=== PATIENT | male | born 1955 | race Caucasian/White ===

== ENCOUNTER 2017-11-03 09:23 | Inpatient (IN) | payer OTHER ==
[~2017-11-03] VITALS: Ht 182.9 cm; Wt 103.0 kg
[2017-11-03 10:17] LABS: ABSOLUTE BASOPHIL COUNT 0 /CUMM (0.0-0.2); ABSOLUTE EOSINOPHIL COUNT 0.2 /CUMM (0.0-0.7); ABSOLUTE GRANULOCYTE CT 4.5 /CUMM (1.4-6.5); ABSOLUTE LYMPH COUNT 2.9 /CUMM (1.2-3.4); ABSOLUTE MONOCYTE COUNT 0.7 /CUMM (0.10-0.60); BASOPHIL % 0.3 % (0.0-2.0); EOSINOPHIL % 2.8 % (0-5); GRANULOCYTE % 53.8 % (42.2-75.2); HEMATOCRIT 41.7 % (42-52); MEAN CORPUSCULAR HGB 30.9 PG (27.0-31.0); MEAN CORPUSCULAR HGB CONC 34.3 G/DL (33.0-37.0); MEAN CORPUSCULAR VOLUME 90.2 FL (80.0-94.0); MEAN PLATELET VOLUME 8.2 FL (7.4-10.4); PLATELET COUNT 206 /CUMM (130-400); RBC DISTRIBUTION WIDTH 13.2 % (11.5-14.5); RED BLOOD CELL CT 4.62 /CUMM (4.70-6.10); WHITE BLOOD CELL COUNT 8.3 /CUMM (4.8-10.8)
[2017-11-03] MEDS ORDERED: LISINOPRIL20 M1 PO (11:20)
[2017-11-03] MEDS ORDERED: AMOX-CLAV 875-1 EACH PO (11:21)
[2017-11-03] MEDS ORDERED: ATORVASTATIN CA40 M1 PO (11:21)
[2017-11-03] MEDS ORDERED: ALLOPURINOL300 M1 PO (11:21)
[2017-11-03] MEDS ORDERED: METFORMIN HCL1000 M1 PO (11:21)
[2017-11-03] MEDS ORDERED: OMEPRAZOLE40 M1 PO (11:22)
[2017-11-03] MEDS ORDERED: PREDNISONE5 M1 PO (11:22)
--- NOTE | 2017-11-03 11:36 | ED AMS/SEIZURE/WEAK/DIZZY ---
See Addendum History of Present Illness General Chief Complaint: General Adult Stated Complaint: C/O WEAKNESS ALL OVER Source: patient, family Exam Limitations: no limitations Vital Signs & Intake/Output Vital Signs & Intake/Output Vital Signs Date Time Temp Pulse Resp B/P B/P Pulse O2 O2 Flow FiO2 Mean Ox Delivery Rate 11/05 1054 88 143/84 11/05 1053 97 143/84 11/05 0902 97 Room Air Room Air 11/05 0800 98.5 96 12 142/80 11/05 0800 96 Room Air Room Air 11/05 0800 98.5 96 12 142/80 96 Room Air Room Air 11/05 0600 88 18 133/71 11/05 0400 97.2 89 11 122/77 11/05 0400 92 Room Air Room Air 11/05 0200 89 16 137/77 11/05 0000 97.2 90 15 142/80 11/04 2300 97.2 95 12 142/80 96 Room Air Room Air 11/04 2200 98.2 86 12 138/70 11/04 2000 98.1 83 12 110/70 11/04 2000 98 Room Air Room Air 11/04 1958 96 Room Air Room Air 11/04 1800 97.1 84 28 116/65 11/04 1600 97.1 96 22 98/70 11/04 1600 97.1 102 20 98/70 96 Room Air Room Air 11/04 1600 96 Room Air Room Air 11/04 1400 97.6 94 18 108/54 11/04 1200 97.9 104 24 134/74 11/04 1200 98 Room Air Room Air ED Intake and Output 11/05 0000 11/04 1200 Intake Total 2060 660 Output Total 1600 2049 Balance 460 -1390 Intake, IV 960 560 Intake, Oral 1100 100 Number 0 0 Bowel Movements Output, Urine 1600 2049 Patient 234 lb 236 lb Weight Weight Bed scale Bed scale Measurement Method Allergies Coded Allergies: Penicillins (TOLD CHILD 11/03/17) Reconcile Medications Allopurinol 300 MG TABLET 1 TAB PO DAILY GOUT (Reported) Amoxicillin/Clavulanate Potass (Amox-Clav 875-125 MG Tablet) 875 MG-125 MG TABLET 1 TAB PO BID SINUS INFECTION (Reported) Atorvastatin Calcium 40 MG TABLET 1 TAB PO DAILY HIGH CHOLESTEROL (Reported) Lisinopril 20 MG TABLET 1 TAB PO DAILY HTN (Reported) Metformin HCl 1,000 MG TABLET 1 TAB PO BID DIABETES (Reported) Omeprazole 40 MG CAPSULE.DR 1 CAP PO DAILY PRN ACID REFLUS (Reported) Prednisone 5 MG TABLET 1 TAB PO DAILY SINUS INFECTION (Reported) Triage Note: PT STATES HE WAS AT HIS PCP MONDAY AND DX WITH A SINUS INFECTION AND PLACED ON PREDNISONE AND AUGMENTIN. REPORTS HE HAS TAKEN THE MEDICINES OVER THE PAST 3 DAYS AND AFTER HIS PREDNISONE DOSE YESTERDAY HE STARTED TO FEEL WEAKNESS IN HIS HANDS. STOPPED TAKING THE PREDNISONE, BUT STATES THAT HIS SYMPTOMS GOT WORSE AND HAD TROUBLE STANDING UP THIS AM. FEELS LIKE HE HAS NO STRENGTH IN HIS EXTREMITIES. PT HAS NO STRENGTH IN HANDS, UNABLE TO SQUEEZE RN FINGERS. PT NOTED WITH A SLIGHT DROOP TO THE RIGHT SIDE, BUT STATES THAT HE HAS A HX OF A BRAIN TUMOR AND HAS RESIDUAL SYMPTOMS FROM THAT. SPOUSE STATES THAT X1 WEEK AGO HE WAS TRYING TO OPEN UP A GARAGE DOOR AND FELL BACKWARDS ONTO HIS BACK. DENIES ANY HEAD STRIKE DURING THAT TIME. Triage Nurses Notes Reviewed? yes HPI: Patient presents for evaluation of gradual onset of weakness and swelling of the extremities. Patient states that he went to his primary care physician on Monday and began treatment for sinus infection after he tested negative for the flu. He is prescribed prednisone and Augmentin. He states he began having swelling of his extremities and beginning yesterday weakness of his hands. This morning he states his legs felt rubbery and weak and he had great difficulty in ambulation. He denies loss of sensation. 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 He has had a persistent cough over the past 3 weeks. (Radha CAMARENA,Benson King) Past History Travel History Traveled to [place] past 21 day No Medical History Any Pertinent Medical History? see below for history Cardiovascular: hypertension Endocrine: diabetes Surgical History Surgical History: non-contributory Psychosocial History What is your primary language Burundian Tobacco Use: Never used ETOH Use: occasional use Illicit Drug Use: denies illicit drug use Family History Hx Contributory? No (Benson Garcia MD) Review of Systems Review of Systems Constitutional: Reports: no symptoms. EENTM: Reports: no symptoms. Respiratory: Reports: no symptoms. Cardiovascular: Reports: no symptoms. GI: Reports: no symptoms. Genitourinary: Reports: no symptoms. Musculoskeletal: Reports: see HPI. Skin: Reports: see HPI. Neurological/Psychological: Reports: no symptoms. Hematologic/Endocrine: Reports: no symptoms. Immunologic/Allergic: Reports: no symptoms. All Other Systems: Reviewed and Negative (Radha CAMARENA,Benson King) Physical Exam Physical Exam General Appearance: SEE BELOW Comments: Gen.: Well-nourished, well-developed, no acute respiratory distress. Head: Normocephalic, atraumatic. Eyes: Normal inspection bilaterally Ears: Normal inspection bilaterally Nose: Normal inspection Throat/mouth : Moist mucosa Face: Mild right mouth droop Neck: Supple, full range of motion, no goiter, no JVD Heart: Regular rate and rhythm, no murmurs rubs or gallops Lungs: Clear to auscultation bilaterally with normal air entry Chest: Nontender Back: Normal range of motion Abdomen: Soft, nontender, nondistended, normal bowel sounds Extremities: Normal range of motion grossly, equal radial pulses, no cyanosis, slight pretibial pitting edema of the legs, 3 out of 5 hand grasp bilaterally, 4 out of 5 lower extremity strength, sensation intact to all extremities Neurologic: Cranial nerves grossly intact, speech is clear Skin: warm and dry Psychiatric: Calm, cooperative, no apparent delusions or hallucinations Core Measures ACS in differential dx? No CVA/TIA Diagnosis No Sepsis Present: No Sepsis Focused Exam Completed? No (Radha CAMARENA,Benson King) Progress Differential Diagnosis: PREDNISONE MYOPATHY, gUILLIAN BARRE,DIABETIC NEUROPATHY, cva, tia, STATIN-INDUCED MYOPATHY Plan of Care: Orders Procedure Date/time Status ICU LAB BUNDLE 11/05 0500 Complete CBC WITHOUT DIFFERENTIAL 11/05 0500 Complete THERAPIST ORDERS 11/04 UNK Complete ELECTROMYOGRAPHY-NER.COND(GEN) 11/04 UNK Active Current Medications Sig/Nilda Start time Last Medication Dose Stop Time Status Admin Amlodipine Besylate 5 MG DAILY 11/06 1000 AC 11/05 (Norvasc) 1054 Magnesium Sulfate 1 GM ONCE ONE 11/05 0945 AC 11/05 (Mag Sulfate in D5) 11/05 1344 1051 Dextrose/Water 100 ML (D5W) Atorvastatin Calcium 40 MG 1700 11/04 1700 AC 11/04 (Lipitor) 1729 Insulin Aspart 0 TIDAC 11/04 1200 AC (NovoLOG) Lisinopril 40 MG DAILY 11/04 1000 AC 11/05 (Prinivil) 1053 Thiamine HCl 100 MG DAILY 11/04 1000 AC 11/05 (Vitamin B1) 1051 Immune Globulin 42 GM DAILY@1800 11/03 1800 AC 11/04 (Carimune NF) 1838 Water 700 ML (Sterile Water) Enoxaparin Sodium 40 MG DAILY 11/03 1407 AC 11/05 (Lovenox) 1053 Omeprazole 40 MG DAILY AC 11/03 1340 AC 11/05 (Prilosec) 0653 Laboratory Tests 11/05/17 0652: Anion Gap 10, Estimated GFR > 60, Glucose 135 H, Calcium 9.3, Phosphorus 4.6 H , Magnesium 1.5 L, Total Bilirubin 0.4, AST 38, ALT 52, Albumin 3.8, CBC w Diff NO MAN DIFF REQ, RBC 4.52 L, MCV 90.9, MCH 30.8, MCHC 33.9, RDW 13.8, MPV 8.1, Gran % 61.2, Lymphocytes % 24.2, Monocytes % 10.6 H, Eosinophils % 3.5, Basophils % 0.5, Absolute Granulocytes 3.7, Absolute Lymphocytes 1.5, Absolute Monocytes 0.6, Absolute Eosinophils 0.2, Absolute Basophils 0 11:[address] Torres to evaluate the patient in the ED. PATIENT EVALUATED BY DR TORRES. HIGHLY SUSPECTED GBS. LUMBAR PUNCTURE, MRI ORDERED. IVIG TO BE STARTED. D/W DR VILLATORO - WILL TRANSPORT TO ICU FOR CLOSE MONITORING. NO RESPIRATORY COMPROMISE AT THIS TIME. (Josh CAMARENA,Amber) Initial ED EKG: none Comments: 11/03/2017 11:35:06 AM patient signed out to Dr. Moreno at shift change person. (Radha CAMARENA,Benson King) Diagnostic Imaging: Viewed by Me: MRI. Discussed w/RAD: MRI. Initial ED EKG: NSR Comments: PATIENT: JOHNNY PRITCHETT PRESENT AGE: 62 PATIENT ACCOUNT NO: [id number] : 55 LOCATION: [facility] ORDERING PHYSICIAN: Amber Moreno MD SERVICE DATE: 11/03/176200 EXAM TYPE: MRI - MRI-HEAD W & W/O RADHA EXAMINATION: MR BRAIN WITHOUT AND WITH CONTRAST CLINICAL INFORMATION: Question mass. Diffuse weakness. Status post acoustic neuroma resection 1990. COMPARISON: None. TECHNIQUE: Multiplanar, multisequence imaging of the brain was performed before and after the intravenous administration of 10 mL of Gadavist. FINDINGS: There are postoperative changes related to translabyrinthine approach for resection of a right-sided acoustic neuroma. There is no evidence of recurrent tumor. There is a fat graft in place. There is no mass or abnormal enhancement within the left internal auditory canal. There is no mass or abnormal signal within the cerebellopontine angle cisterns. The left mastoid air cells are clear. There is no intracranial mass or abnormal intracranial enhancement. There is no acute infarction. There is no intracranial hemorrhage or extra axial collection. The ventricles, sulci, and basilar cisterns are normal in size and configuration. There are mild foci of T2 hyperintensity in the bilateral cerebral white matter, which are nonspecific but likely reflect underlying small vessel disease. The flow voids of the major intracranial arteries appear intact. The bones and extracranial soft tissues are within normal limits. IMPRESSION: 1. Expected postoperative changes related to resection of right vestibular schwannoma. No evidence of recurrence. 2. No mass lesion, acute infarction, or abnormal intracranial enhancement. DICTATED BY: Carmelita Hudson MD DATE/TIME DICTATED:11/03/171707 ASBESTOS ABATEMENT TECHNICIAN:SOLIS DATE/TIME TRANSCRIBED:11/03/171707 CONFIDENTIAL, DO NOT COPY WITHOUT APPROPRIATE AUTHORIZATION. <Electronically signed in Other Vendor System> SIGNED BY: Carmelita Hudson MD 11/03/171716 PATIENT: JOHNNY PRITCHETT PRESENT AGE: 62 PATIENT ACCOUNT NO: [id number] : 55 LOCATION: [facility] ORDERING PHYSICIAN: Amber Moreno MD SERVICE DATE: 11/03/17 EXAM TYPE: MRI - MRI-CERVICAL SPINE EXAMINATION: MR CERVICAL SPINE WITHOUT CONTRAST CLINICAL INFORMATION: Question cervical injury. Weakness in all 4 limbs. History of fall few months ago. COMPARISON: None available. TECHNIQUE: MRI of the cervical spine was performed using routine sequences without contrast. The axial T2-weighted images are markedly motion degraded. FINDINGS: There is straightening of the normal cervical lordosis but no listhesis in the sagittal plane. There is multilevel degenerative disc change with intervertebral disc height loss from C3-C4 through C7-T1. There is endplate and bone marrow edema at C3-C4, C5-C6, and C7-T1. The cervical cord signal appears normal. The visualized intracranial structures and paraspinal soft tissues are within normal limits. The carotid arteries are partly retropharyngeal. SIGNIFICANT FINDINGS BY LEVEL: C2-C3: Disc bulging and uncovertebral hypertrophy without spinal canal or neural foraminal stenosis. C3-C4: Disc osteophyte complex results in mild spinal canal stenosis. Mild bilateral uncovertebral and facet arthropathy resulting in mild to moderate right and mild left neural foraminal stenosis. C4-C5: Broad-based disc osteophyte complex indents the ventral cord causing mild spinal canal stenosis. Bilateral uncovertebral hypertrophy and facet arthropathy results in moderate to severe left and moderate right neural foraminal stenosis. C5-C6: Broad-based disc osteophyte complex indents the ventral cord causing mild spinal canal stenosis. Moderate right and moderate to severe left neural foraminal stenosis related to uncovertebral and facet arthropathy. C6-C7: Broad-based disc osteophyte complex indents the ventral cord causing mild spinal canal stenosis. There is approximately moderate bilateral neural foraminal stenosis related to uncovertebral and facet arthropathy. C7-T1: Broad-based disc osteophyte complex with superimposed central disc protrusion which indents the ventral cord causing mild spinal canal stenosis. There is mild left more than right neural foraminal stenosis. There is no high-grade spinal canal stenosis in the visualized upper thoracic spine. IMPRESSION: Moderate multilevel degenerative spondylotic changes resulting in multilevel mild spinal canal stenosis. There is neural foraminal stenosis which is most advanced at C4-C5 and C5-C6. No cord signal abnormality is seen. DICTATED BY: Carmelita Hudson MD DATE/TIME DICTATED:11/03/171712 ASBESTOS ABATEMENT TECHNICIAN:SOLIS DATE/TIME TRANSCRIBED:11/03/171712 CONFIDENTIAL, DO NOT COPY WITHOUT APPROPRIATE AUTHORIZATION. <Electronically signed in Other Vendor System> SIGNED BY: Carmelita Hudson MD 11/03/17 172 (Amber Moreno MD) Departure Departure Disposition: STILL A PATIENT Condition: Stable Referrals: Myra CAMARENA,Bernardino García (PCP/Family) Departure Forms: Customer Survey General Discharge Information (Radha CAMARENA,Benson King) Departure Time of Disposition: 1315 Clinical Impression Primary Impression: Guillain-Lindon syndrome Admission Note Spoke With: Ej CAMARENA,Eladio Swanson Documentation of Exam: Documentation of any treatments & extenuating circumstances including Concerns Regarding Discharge (functional status, medication knowledge or non-compliance, living conditions, etc.) that warrant an admission rather than observation: [ICU ADMISSION, MRI NECK, LUMBAR PUNCTURE, NEUROLOGY CONS[facility] DR [facility]RES[facility] (Josh CAMARENA,Amber) Critical Care Note Critical Care Note Critical Care Time: 30-74 min (Josh CAMARENA,Amber)
[2017-11-03 13:32] LABS: PT 11.3 SEC (9.4-12.5); PTT 27 SEC (25-37)
--- NOTE | 2017-11-03 13:42 | Cons- Neurology ---
General Information and HPI Consulting Request Date of Consult: 11/03/17 Requested By: Dr. Garcia History of Present Illness: 62-year-old male presents with chief complaint of weakness. He is a known diabetic, hypertensive, hyperlipidemic patient was recently seen by his PMD for presumed sinus infection with purulent discharge from the nose. He was started 4 days ago on an antibiotic and steroid. His also recalls that he may have had some transient GI disturbance which was self-limited within the past month and a flu shot approximately one month ago. Yesterday, the patient began to note weakness of his hands. Last night, upon attempting to get out of bed, he needed assistance from his . He subsequently presented to the [facility] for further evaluation and treatment. Finally, the patient will admit to a fall approximately 1 month ago upon attempting to close his garage door. He fell backwards onto some grass. He went on his way without apparent difficulty or severe discomfort. There has been no sphincteric changes or visual disturbance. 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 Allergies/Medications Allergies: Coded Allergies: Penicillins (TOLD CHILD 11/03/17) Home Med List: Allopurinol 300 MG TABLET 1 TAB PO DAILY GOUT (Reported) Amoxicillin/Clavulanate Potass (Amox-Clav 875-125 MG Tablet) 875 MG-125 MG TABLET 1 TAB PO BID SINUS INFECTION (Reported) Atorvastatin Calcium 40 MG TABLET 1 TAB PO DAILY HIGH CHOLESTEROL (Reported) Lisinopril 20 MG TABLET 1 TAB PO DAILY HTN (Reported) Metformin HCl 1,000 MG TABLET 1 TAB PO BID DIABETES (Reported) Omeprazole 40 MG CAPSULE.DR 1 CAP PO DAILY PRN ACID REFLUS (Reported) Prednisone 5 MG TABLET 1 TAB PO DAILY SINUS INFECTION (Reported) Review of Systems Review of Systems: Notable for recent head congestion and purulent discharge and more recent weakness of hands and legs. There has been no diplopia, fever, rash, chest pain , shortness of breath, vertigo, vomiting, joint inflammation or bleeding disturbance. He endorses chronically impaired hearing and facial weakness on the right. Past History Travel History Traveled to [place] past 21 day No Medical History Cardiovascular: hypertension Endocrine: diabetes Surgical History Surgical History: non-contributory Psychosocial History ETOH Use: occasional use Illicit Drug Use: denies illicit drug use Exam & Diagnostic Data Vital Signs and I&O Vital Signs Date Time Temp Pulse Resp B/P B/P Pulse O2 O2 Flow FiO2 Mean Ox Delivery Rate 11/03 1303 98.1 95 18 168/103 99 Room Air 11/03 1118 87 18 179/93 99 Room Air 11/03 0943 96.7 87 16 178/99 97 Room Air Pleasant middle-aged male in no acute distress. He was awake, alert and cooperative. Higher cortical function was intact. Speech was fluent. The head was normocephalic and atraumatic. Pupils were equal. Extraocular movements were full. There was a chronic right lower motor neuron facial paresis with synkinesis. Hearing was absent on the right. Tongue was midline; there was no dysarthria. The motor examination showed normal tone. He was diffusely weak, both proximally and distally in the upper and lower extremities. Biceps reflexes were trace positive. Patella and Achilles reflexes were 2+. Plantar responses were flexor. Sensory examination showed normal joint position sense and essentially normal distal vibratory sensation. There was no sensory level. The gait was untested. 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 It would be most unusual for 4 days of an oral steroid to result in this degree of weakness both proximally and distally. Similarly, a statin-induced myopathy would not present in this fashion. A cervical myelopathy cannot be definitively ruled out, especially in view of his preserved deep tendon reflexes, however I feel that this is also quite unlikely. Recommendations: We would suggest the following: #1 admit to ICU #2 baseline PFTs with vital capacity #3 DVT precautions #4 lumbar puncture to assess for albumino- cytologic dissociation #5 intravenous immunoglobulin 2 g/kg over 5 days #6 physical and occupational therapy evaluations #7 MRI of the cervical spine without contrast #8 discontinue outpatient corticosteroids #9 we'll consider EMG and nerve conduction study next week if diagnosis remains at all in question We will follow closely with the ICU team. Please feel free to call with any further questions. Consult Acknowledgment - Thank you for your consult request.
--- NOTE | 2017-11-03 14:25 | RADIOLOGY REPORT ---
EXAMINATION: XR PORTABLE CHEST CLINICAL INFORMATION: Question Guillain [place] syndrome. ICU admission. Baseline exam. COMPARISON: None TECHNIQUE: Portable AP semierect view of the chest was obtained. FINDINGS: EKG leads overlie the chest. The cardiomediastinal silhouette is within normal limits in size. Lungs bilaterally are symmetrically expanded and clear. No focal consolidation, effusion or pneumothorax is seen. There is likely mild convex right thoracic scoliosis. Bony structures are otherwise unremarkable. IMPRESSION: No acute cardiopulmonary process seen.
--- NOTE | 2017-11-03 14:33 | Cons- CRCU ---
General Information and HPI Consulting Request Date of Consult: 11/03/17 Requested By: ed History of Present Illness: 62-year-old male presents with chief complaint of weakness. He is a known diabetic, hypertensive, hyperlipidemic patient was recently seen by his PMD for presumed sinus infection with purulent discharge from the nose. He was started 4 days ago on an antibiotic and steroid. His also recalls that he may have had some transient GI disturbance which was self-limited within the past month and a flu shot approximately one month ago. Yesterday, the patient began to note weakness of his hands. Last night, upon attempting to get out of bed, he needed assistance from his . He subsequently presented to the [facility] for further evaluation and treatment. Finally, the patient will admit to a fall approximately 1 month ago upon attempting to close his garage door. He fell backwards onto some grass. He went on his way without apparent difficulty or severe discomfort. There has been no sphincteric changes or visual disturbance. 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 Review of symptoms Notable for recent head congestion and purulent discharge and more recent weakness of hands and legs. There has been no diplopia, fever, rash, chest pain , shortness of breath, vertigo, vomiting, dysphagia, joint inflammation or bleeding disturbance. He endorses chronically impaired hearing and facial weakness on the right. Allergies/Medications Allergies: Coded Allergies: Penicillins (TOLD CHILD 11/03/17) Home Med List: Allopurinol 300 MG TABLET 1 TAB PO DAILY GOUT (Reported) Amoxicillin/Clavulanate Potass (Amox-Clav 875-125 MG Tablet) 875 MG-125 MG TABLET 1 TAB PO BID SINUS INFECTION (Reported) Atorvastatin Calcium 40 MG TABLET 1 TAB PO DAILY HIGH CHOLESTEROL (Reported) Lisinopril 20 MG TABLET 1 TAB PO DAILY HTN (Reported) Metformin HCl 1,000 MG TABLET 1 TAB PO BID DIABETES (Reported) Omeprazole 40 MG CAPSULE.DR 1 CAP PO DAILY PRN ACID REFLUS (Reported) Prednisone 5 MG TABLET 1 TAB PO DAILY SINUS INFECTION (Reported) Review of Systems Review of Systems Constitutional: Reports: see HPI. Past History Travel History Traveled to [place] past 21 day No Medical History Cardiovascular: hypertension Endocrine: diabetes Surgical History Surgical History: non-contributory Psychosocial History ETOH Use: occasional use Illicit Drug Use: denies illicit drug use Exam & Diagnostic Data Last 24 Hrs of Vital Signs/I&O Vital Signs Date Time Temp Pulse Resp B/P B/P Pulse O2 O2 Flow FiO2 Mean Ox Delivery Rate 11/03 1303 98.1 95 18 168/103 99 Room Air 11/03 1118 87 18 179/93 99 Room Air 11/03 0943 96.7 87 16 178/99 97 Room Air Intake & Output 11/03 1600 11/03 0800 11/03 0000 Intake Total Output Total Balance Patient 237 lb Weight Weight Standing Scale Measurement Method Last 48 Hrs of Labs/[place]: Laboratory Tests 11/03/17 1008: Anion Gap 14, Estimated GFR > 60, BUN/Creatinine Ratio 22.9, Glucose 122 H, Calcium 9.9, Total Bilirubin 0.4, AST 46, ALT 64, Alkaline Phosphatase 46, Creatine Kinase 172 H, Troponin I < 0.01, Total Protein 7.2, Albumin 4.3, Globulin 2.9, Albumin/Globulin Ratio 1.5, PT 11.3, INR 1.04, APTT 27, CBC w Diff NO MAN DIFF REQ, RBC 4.62 L, MCV 90.2, MCH 30.9, MCHC 34.3, RDW 13.2, MPV 8.2, Gran % 53.8, Lymphocytes % 34.6, Monocytes % 8.5, Eosinophils % 2.8, Basophils % 0.3, Absolute Granulocytes 4.5, Absolute Lymphocytes 2.9, Absolute Monocytes 0.7 H, Absolute Eosinophils 0.2, Absolute Basophils 0 11/03/17 1007: Ref Lab Test Result Pending Assessment/Plan CRCU Impression/Plan: On exam Alert awake and oriented 3 not in any distress Neck supple no JVD Chest decreased breath sounds no wheezing Heart S1-S2 was heard no murmur Abdominal exam soft No cyanosis clubbing or edema Neurological exam she showed that he is alert awake and oriented 3, higher cortical function normal, speech normal. PERRLA EOMI Right-sided facial droop with chronic right-sided motor neuron facial versus with synkinesis noted Hearing absent on the right side He had diffuse bilateral weakness both sides and on 4 limbs both proximally and distally His tendon reflexes were reduced, both sides especially in the upper extremity. Plantars were downgoing, sensory exam normal he did complain of numbness both sides Gait was not tested Patient did not give any this sphincter per symptoms SIGNIFICANT DATA Blood work reviewed which appears essentially normal CPK slightly elevated IMPRESSION This is a gentleman with hypertension, hyperlipidemia, diabetes, previous history of gout, previous surgery for right-sided acoustic neuroma with some right-sided lower motor neuron perisis with synkinesis, recent sinus infection for which he took antibiotics and steroids, history of daily alcohol use, history of fall more than a month ago where he fell backwards with no significant neck pain and other discomfort, no previous history of any animal bites etc. 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 Differential diagnoses include cervical myelopathy (previous fall) however clinically does not appear so. No clinical evidence suggestive of significant steroid myopathy or myopathy from statins. No clinical evidence suggestive of any active neurological infection. Patient does give a history of diarrheal illness about a month ago, recent sinusitis. * Recent sinusitis for which she has taken steroids and antibiotics and seems to be better * Hypertension, hyperlipidemia, diabetes, previous history of gout which appears to be stable * Previous history of surgery for acoustic neuroma with chronic right-sided lower motor neuron paresis of the facial nerve with synkinesis * Daily alcohol use but no review of systems suggestive any alcohol withdrawal syndrome. 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 RECOMMENDATION/PLAN * Admit to ICU * MRI of the head and neck * Lumbar puncture and send for all appropriate studies * If the MRI is unremarkable start him on immunoglobulin 2 g per KG over 5 days * Adequate blood pressure control including amlodipine and lisinopril use avoid beta uvaldo * Ask respiratory to do baseline vital capacity and his vital capacity should be checked every 6-8 hours depending on his clinical course. If he cannot do this test appropriately as he has facial no paralysis then we will watch him clinically and he might need ABG if he does show evidence of hypercarbia * Proton pump inhibitor, DVT prophylaxis * Watch for any autonomic dysfunction * Given one litre banana bag and start him on thiamine * Check HIV antibody, ESR, CRP * Chest x-ray * Fingerstick glucose hold metformin and use sliding scale insulin if needed * Hold statin * Recheck his CPK tomorrow * No further steroids * Finish 7 day course of antibiotics with Augmentin by mouth * Watch out for any dysphagia Patient is critically ill keep him in the ICU Consult Acknowledgment - Thank you for your consult request.
--- NOTE | 2017-11-03 15:59 | History & Physical ---
General Information and HPI MD Statement: I have seen and personally examined JOHNNY PRITCHETT and documented this H&P. The patient is a 62 year old M who presented with a patient stated chief complaint of [weakness]. Source of Information: patient, family Exam Limitations: no limitations History of Present Illness: This is a 62 yo male with PMH of DM, HTN, R.sided acoustic neuroma s/p surgery 27 yrs ago with residual facial paralysis and hearing loss, seasonal allergies who comes in for CC weakness. He states that he has largely been the normal health until yesterday. In the afternoon he noted some bilateral upper extremity weakness. He found it unusual that he could not stir pots on the stove without fatigue. He felt like he could not grasp objects as well. He continued the rest of the day and went to sleep without noticing anything further. He then work up at 4am and noted weakness in his LE that he needed his 's assistance to ambulate to bathroom. He has never had similar sensation before. He does endorse some trauma about a month ago when he slipped and fell and hit the back of his neck. He noted no sequelae immediately after fall. He did complain of chronic sinus infection for about one month. He recently saw PCP and was started on Augmentin and Prednisone 5mg TID. He has completed 3 days of treatment. He endorses diarrhea about 1 month ago which lasted for one day. He is up to date on all his vaccinations including influenza (1 mo ago) and tetanus booster within the past five years. Until yesterday pt states that he was able to shovel snow with no problems or weakness. ROS: Denies fever, change in vision, decrease in hearing other than baseline, slurring of speech. Denies chest pain, palpitaitons, abdominal pain, nausea, vomiting, diarrhea, constipation, melena, hematochezia. He does endorse sinus congestion nad weakness in bilat UE and LE. Denies any change in sensation. 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 No recent travel in one year. No changes in medication other than augmentin and prednisone mentioned above. Has not stepped on any joy nails etc. He denies any IVDA or hx of IVDA. He denies smoking. He drinks etoh on almost a daily basis. Several drinks a day mix between beer, vodka and wine. He has never had an episode of withdrawl, or DTs. Denies any difficulty in stopping etoh. Surgical Hx pertinent for cosmetic eyelid surgery and acoustic neuroma on r. side Allergies/Medications Allergies: Coded Allergies: Penicillins (TOLD CHILD 11/03/17) Home Med list Allopurinol 300 MG TABLET 1 TAB PO DAILY GOUT (Reported) Amoxicillin/Clavulanate Potass (Amox-Clav 875-125 MG Tablet) 875 MG-125 MG TABLET 1 TAB PO BID SINUS INFECTION (Reported) Atorvastatin Calcium 40 MG TABLET 1 TAB PO DAILY HIGH CHOLESTEROL (Reported) Lisinopril 20 MG TABLET 1 TAB PO DAILY HTN (Reported) Metformin HCl 1,000 MG TABLET 1 TAB PO BID DIABETES (Reported) Omeprazole 40 MG CAPSULE.DR 1 CAP PO DAILY PRN ACID REFLUS (Reported) Prednisone 5 MG TABLET 1 TAB PO DAILY SINUS INFECTION (Reported) Compliance With Home Meds: GOOD Past History Travel History Traveled to [place] past 21 day No Medical History Cardiovascular: hypertension Endocrine: diabetes Surgical History Surgical History: non-contributory Past Family/Social History Psychosocial History ETOH Use: occasional use Illicit Drug Use: denies illicit drug use Review of Systems Review of Systems Constitutional: Reports: see HPI, weakness. Denies: chills, diaphoresis, fever, unexplained weight loss. Exam & Diagnostic Data Last 24 Hrs of Vital Signs/I&O Vital Signs Date Time Temp Pulse Resp B/P B/P Pulse O2 O2 Flow FiO2 Mean Ox Delivery Rate 11/03 1303 98.1 95 18 168/103 99 Room Air 11/03 1118 87 18 179/93 99 Room Air 11/03 0943 96.7 87 16 178/99 97 Room Air Intake & Output 11/03 1600 11/03 0800 11/03 0000 Intake Total Output Total Balance Patient 107.275 kg Weight Weight Standing Scale Measurement Method Physical Exam General Appearance Alert, Oriented X3, Cooperative, No Acute Distress HEENT Atraumatic, PERRLA, EOMI, mucous membranes dry, has r. sided facial paralysis. at baseline, no tongue fasciculatons noted. Neck Supple Cardiovascular Regular Rate, Normal S1, Normal S2, No Murmurs Lungs Normal Air Movement Abdomen Soft, No Tenderness Neurological strength diminished proximally and distall in bilat LE. No babinski. Reflexes brisk in knees. ROM in tact. Sensation normal bilat. Extremities No Cyanosis, No Edema, Normal Pulses, No Tenderness/Swelling, spooning of nails noted in UE. Last 24 Hrs of Labs/[place]: Laboratory Tests 11/03/17 1441: CSF Glucose 74 H, CSF Total Protein 79 H 11/03/17 1441: CSF WBC 1, CSF RBC 0, CSF Comment , Herpes Simplex Source Pending, HSV I DNA PCR Pending, HSV II DNA PCR Pending 11/03/17 1008: Anion Gap 14, Estimated GFR > 60, BUN/Creatinine Ratio 22.9, Glucose 122 H, Calcium 9.9, Total Bilirubin 0.4, AST 46, ALT 64, Alkaline Phosphatase 46, Creatine Kinase 172 H, Troponin I < 0.01, Total Protein 7.2, Albumin 4.3, Globulin 2.9, Albumin/Globulin Ratio 1.5, PT 11.3, INR 1.04, APTT 27, CBC w Diff NO MAN DIFF REQ, RBC 4.62 L, MCV 90.2, MCH 30.9, MCHC 34.3, RDW 13.2, MPV 8.2, Gran % 53.8, Lymphocytes % 34.6, Monocytes % 8.5, Eosinophils % 2.8, Basophils % 0.3, Absolute Granulocytes 4.5, Absolute Lymphocytes 2.9, Absolute Monocytes 0.7 H, Absolute Eosinophils 0.2, Absolute Basophils 0 11/03/17 1007: Ref Lab Test Result Pending Microbiology 11/03 1444 UPPER RESP: Surveillance Culture - COLB 11/03 1444 GI: Surveillance Culture - COLB 11/03 1440 CENT N S: CSF Culture - RECD 11/03 1440 CENT N S: Gram Stain - RECD Assessment/Plan Assessment: ASSESSMENT: This is a 62 yo male with PMH of DM, HTN, gout, R.sided acoustic neuroma s/p surgery 27 yrs ago with residual facial paralysis and hearing loss, seasonal allergies who comes in for CC weakness. Given acute onset of gradually progressive symmetrical tetraparesis without obvious acute insult or injury differential in this patient includes acute or subacute inflammatory demyelinating polyneuropathy, myelopathy, and tick quadraparesis. Additionally, will need to rule out infection, paraneoplastic, medication side-effect or rheumatologic conditions resulting in similar presentation. -- PLAN: 1. Tetraparesis: Pt has a progressive symmetric paralysis in bilat legs and arms w/ no evidence of sensory disturbance, autonomic dysfunction or bulbar involvement. 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 His hx of recen flu shot, current URI, previous GI episode are supportive of a GBS diagnosis. However, he has brisk reflexes which might suggest against.Pt denies any travel or ingestions. Steroids are a new medication for him but weakness to this degree would be unusual. Will hold off medication regardless. CK WNL. * CBC * Utox * MARY ANN * HIV * TSH * ESR * B12 * Folate * HBA1c * LFT * Lyme * LP to rule out infection and to check for albuminocytologic dissociation * MRI neck * EMG * PT * OT * IVIG 2g/kg over 5 days * PFT * Flu swab * ICU monitoring for arrhythmia,dysphagia, respiratory distress or autonomic dysfunction * Monitor respiratory status closely and low threshold to intubate * Hold prednisone * Hold home Atorvastatin * Hold Allopurinol * Finish dose of Augmentin for sinusitis * Appreciate neuro consult * If the above gives no further direction can consider further heavy metal and antibody testing 2. DM: * RISS * FS * Hold Metformin * HBA1C 3. HTN: * Con't home reg of Lisinopril 20mg daily with appropriate hold parameters * Montor on telemetry 4. Gout: * Hold allupurinol 5. Pt has sig hx etoh w/o evidence of etoh abuse or dependence: * Currently NOT placing him on CIWA as don't want to cloud mental status * Con't monitor and treat as necessary * utox * Banana bag * Thiamine daily FC CHEM DVT PPX CC diet As Ranked By This Provider Problem List: 1. Guillain-[place] Core Measures/Misc (05/14) Acute Coronary Syndrome ACS Diagnosis: No Congestive Heart Failure Congestive Heart Failure Diagnosis No Cerebrovascular Accident CVA/TIA Diagnosis: No VTE (View Protocol) VTE Risk Factors Acute Medical Illness No Mechanical VTE [facility] Pharm Prophylaxis d/t NA PharmProphylax ordered Sepsis (View protocol) Sepsis Present: No
--- NOTE | 2017-11-03 16:08 | INTERVENTIONAL RADIOLOGY RPT ---
CLINICAL HISTORY: The patient is a 62 year old male with possible Guillain [place], who presents to Interventional Radiology for fluoroscopically-guided lumbar puncture. PROCEDURES: Fluoroscopically-guided lumbar puncture. PHYSICIANS: Dr. Mark Torres (attending). MEDICATIONS: 1. Lidocaine 1%, 5 mL SQ. CONTRAST: None FLUOROSCOPY TIME: 0.6 minutes DAP: 5.0 uGym2 COMPLICATIONS: None ESTIMATED BLOOD LOSS: <5 mL SPECIMENS: 8 mL clear CSF. Specimens were appropriately labeled and sent to the laboratory for evaluation with request to inform the referring physician of results. IMPLANT: None SITE MARKING: As part of the preprocedure verification policy, a site marking procedure was initiated. Due to the nature the procedure, the insertion site could not be predetermined thus invoking the policy of exemption to site laterality and marking. Insertion site marking was performed in the procedure room in conjunction with imaging confirmation. PROCEDURE NOTE: Informed consent was obtained from the patient prior to the procedure. During this process, the procedure and potential alternatives were explained along with the intended outcome and benefits. The risks of the procedure, including the possibility of an unsuccessful procedure, as well as the risk of not doing the procedure, were discussed. The patient was given the opportunity to ask questions regarding the procedure and appeared competent to make decisions. A signed consent form documenting this discussion was placed in the medical record. A time-out procedure was performed. Appropriate preprocedure medical history and imaging studies were reviewed. A time-out procedure was performed. The patient was placed prone on the fluoroscopy table. Fluoroscopic images of the lumbar spine were obtained to localize the L4-L5 level. The patient's back was prepped and draped in the standard sterile fashion. 1% lidocaine was used to obtain local anesthesia the skin and deeper tissues. A 22-gauge Sprotte needle was then passed through the introducer needle into the spinal canal, until CSF flowed. CSF was collected and sent for requested laboratory analysis. The spinal needle was removed and a sterile dressing applied. The patient tolerated the procedure well. FINDINGS: 1. Clear CSF. IMPRESSION: Fluoroscopic-guided lumbar puncture as described. PLAN: The patient was stable after the procedure and was transferred to the interventional recovery area. The patient will be transferred to his medical room.
--- NOTE | 2017-11-03 17:17 | MRI REPORT ---
EXAMINATION: MR BRAIN WITHOUT AND WITH CONTRAST CLINICAL INFORMATION: Question mass. Diffuse weakness. Status post acoustic neuroma resection 1990. COMPARISON: None. TECHNIQUE: Multiplanar, multisequence imaging of the brain was performed before and after the intravenous administration of 10 mL of Gadavist. FINDINGS: There are postoperative changes related to translabyrinthine approach for resection of a right-sided acoustic neuroma. There is no evidence of recurrent tumor. There is a fat graft in place. There is no mass or abnormal enhancement within the left internal auditory canal. There is no mass or abnormal signal within the cerebellopontine angle cisterns. The left mastoid air cells are clear. There is no intracranial mass or abnormal intracranial enhancement. There is no acute infarction. There is no intracranial hemorrhage or extra axial collection. The ventricles, sulci, and basilar cisterns are normal in size and configuration. There are mild foci of T2 hyperintensity in the bilateral cerebral white matter, which are nonspecific but likely reflect underlying small vessel disease. The flow voids of the major intracranial arteries appear intact. The bones and extracranial soft tissues are within normal limits. IMPRESSION: 1. Expected postoperative changes related to resection of right vestibular schwannoma. No evidence of recurrence. 2. No mass lesion, acute infarction, or abnormal intracranial enhancement.
--- NOTE | 2017-11-03 17:25 | MRI REPORT ---
EXAMINATION: MR CERVICAL SPINE WITHOUT CONTRAST CLINICAL INFORMATION: Question cervical injury. Weakness in all 4 limbs. History of fall few months ago. COMPARISON: None available. TECHNIQUE: MRI of the cervical spine was performed using routine sequences without contrast. The axial T2-weighted images are markedly motion degraded. FINDINGS: There is straightening of the normal cervical lordosis but no listhesis in the sagittal plane. There is multilevel degenerative disc change with intervertebral disc height loss from C3-C4 through C7-T1. There is endplate and bone marrow edema at C3-C4, C5-C6, and C7-T1. The cervical cord signal appears normal. The visualized intracranial structures and paraspinal soft tissues are within normal limits. The carotid arteries are partly retropharyngeal. SIGNIFICANT FINDINGS BY LEVEL: C2-C3: Disc bulging and uncovertebral hypertrophy without spinal canal or neural foraminal stenosis. C3-C4: Disc osteophyte complex results in mild spinal canal stenosis. Mild bilateral uncovertebral and facet arthropathy resulting in mild to moderate right and mild left neural foraminal stenosis. C4-C5: Broad-based disc osteophyte complex indents the ventral cord causing mild spinal canal stenosis. Bilateral uncovertebral hypertrophy and facet arthropathy results in moderate to severe left and moderate right neural foraminal stenosis. C5-C6: Broad-based disc osteophyte complex indents the ventral cord causing mild spinal canal stenosis. Moderate right and moderate to severe left neural foraminal stenosis related to uncovertebral and facet arthropathy. C6-C7: Broad-based disc osteophyte complex indents the ventral cord causing mild spinal canal stenosis. There is approximately moderate bilateral neural foraminal stenosis related to uncovertebral and facet arthropathy. C7-T1: Broad-based disc osteophyte complex with superimposed central disc protrusion which indents the ventral cord causing mild spinal canal stenosis. There is mild left more than right neural foraminal stenosis. There is no high-grade spinal canal stenosis in the visualized upper thoracic spine. IMPRESSION: Moderate multilevel degenerative spondylotic changes resulting in multilevel mild spinal canal stenosis. There is neural foraminal stenosis which is most advanced at C4-C5 and C5-C6. No cord signal abnormality is seen.
[2017-11-03 17:50] VITALS: BP 180/99
[2017-11-03 20:00] VITALS: BP 197/95
[2017-11-03 22:00] VITALS: BP 173/82
[2017-11-04] VITALS (13 sets, daily range): BP systolic 98–179; BP diastolic 54–98
[2017-11-04 05:06] LABS: ABSOLUTE BASOPHIL COUNT 0 /CUMM (0.0-0.2); ABSOLUTE EOSINOPHIL COUNT 0.2 /CUMM (0.0-0.7); ABSOLUTE GRANULOCYTE CT 6.6 /CUMM (1.4-6.5); ABSOLUTE LYMPH COUNT 1.3 /CUMM (1.2-3.4); ABSOLUTE MONOCYTE COUNT 0.6 /CUMM (0.10-0.60); BASOPHIL % 0.2 % (0.0-2.0); EOSINOPHIL % 1.8 % (0-5); GRANULOCYTE % 75.5 % (42.2-75.2); HEMATOCRIT 40.5 % (42-52); MEAN CORPUSCULAR HGB 30.9 PG (27.0-31.0); MEAN CORPUSCULAR HGB CONC 33.9 G/DL (33.0-37.0); MEAN CORPUSCULAR VOLUME 91.1 FL (80.0-94.0); MEAN PLATELET VOLUME 8.3 FL (7.4-10.4); PLATELET COUNT 196 /CUMM (130-400); RBC DISTRIBUTION WIDTH 13.8 % (11.5-14.5); RED BLOOD CELL CT 4.45 /CUMM (4.70-6.10); WHITE BLOOD CELL COUNT 8.7 /CUMM (4.8-10.8)
--- NOTE | 2017-11-04 08:08 | PN- CRCU ---
See Addendum Subjective HPI/Critical Care Issues: Continues to be stable Continues to have weakness with mild quadriparesis Afebrile Was hypertensive last night and blood pressure trending low Not tachycardic heart rate around 80 Oxygenating well Continues to be on immunoglobulin drip Has had adequate urine output since admission Medications reviewed Blood work reviewed unremarkable magnesium is significantly low at 1.3 phosphorus is elevated 's other blood work reviewed CSF reviewed shows his protein is elevated at 79 and he had only 1 WBC so far no evidence suggestive of any meningitis White count stable hemoglobin 13.8 Chest x-ray was normal MRI reviewed Objective Current Medications: Current Medications Sig/Nilda Start time Last Medication Dose Route Stop Time Status Admin Amlodipine Besylate 10 MG ONCE ONE 11/03 2330 DC 11/04 PO 11/03 233 0021 Amoxicillin/ 875 MG BID 11/03 1341 AC 11/03 Clavulanate Potassium PO 11/06 2000 2152 Cyanocobalamin/ 1 BAG ONCE ONE 11/03 1730 DC 11/03 Thiamine/Pyridoxine IV 11/04 0129 1834 Dextrose/Water 1,000 ML Enoxaparin Sodium 40 MG DAILY 11/03 1407 AC 11/03 SC 1803 Hydralazine HCl 2.5 MG ONCE ONE 11/03 2330 DC 11/03 IV 11/03 2331 2334 Immune Globulin 42 GM DAILY@1800 11/03 1800 AC 11/03 Water 700 ML IV 1833 Lisinopril 20 MG DAILY 11/03 1339 AC 11/03 PO 1803 Morphine Sulfate 0 .STK-MED ONE 11/03 0949 DC .ROUTE Non-Formulary 0 SEE ADMIN CRITERIA 11/03 1645 DC Medication ANY Omeprazole 40 MG DAILY AC 11/03 1340 AC 11/04 PO 0642 Thiamine HCl 100 MG DAILY 11/04 1000 AC PO Vital Signs & I&O Last 24 Hrs of Vitals and I&O: Vital Signs Date Time Temp Pulse Resp B/P B/P Pulse O2 O2 Flow FiO2 Mean Ox Delivery Rate 11/04 0600 87 14 152/72 11/04 0400 98.1 101 15 148/76 11/04 0400 96 Room Air 11/04 0200 110 27 179/87 11/04 0127 96 Room Air 11/04 0021 110 194/99 11/04 0000 98.2 107 18 170/98 11/04 0000 97 Room Air 11/04 0000 98.2 107 18 170/98 97 Room Air 11/03 2334 106 202/105 11/03 2200 82 16 173/82 11/04 1999 97.8 81 25 197/95 11/04 1999 98 Room Air 11/03 1943 Room Air Room Air 11/03 1750 96 Room Air 11/03 1750 98.1 98 14 180/99 98 Room Air 11/03 1303 98.1 95 18 168/103 99 Room Air 11/03 1118 87 18 179/93 99 Room Air 11/03 0943 96.7 87 16 178/99 97 Room Air Intake & Output 11/04 1600 11/04 0800 11/04 0000 Intake Total 660 1438 Output Total 2049 115 Balance -1390 288 Intake, IV 560 1118 Intake, Oral 100 320 Number 0 0 Bowel Movements Output, Urine 2049 115 Patient 107 lb 268 lb Weight Weight Bed scale Bed scale Measurement Method Impression/Plan Impression/Plan Impression/Plan: On exam Alert awake and oriented 3 not in any distress Neck supple no JVD Chest decreased breath sounds no wheezing Heart S1-S2 was heard no murmur Abdominal exam soft No cyanosis clubbing or edema Neurological exam she showed that he is alert awake and oriented 3, higher cortical function normal, speech normal. PERRLA EOMI Right-sided facial droop with chronic right-sided motor neuron facial versus with synkinesis noted Hearing absent on the right side He had diffuse bilateral weakness both sides and on 4 limbs both proximally and distally His tendon reflexes were reduced, both sides especially in the upper extremity. Plantars were downgoing, sensory exam normal he did complain of numbness both sides Gait was not tested Patient did not give any this sphincter per symptoms SIGNIFICANT DATA Blood work reviewed which appears essentially normal CPK slightly elevated yesterday now normal IMPRESSION This is a gentleman with hypertension, hyperlipidemia, diabetes, previous history of gout, previous surgery for right-sided acoustic neuroma with some right-sided lower motor neuron perisis with synkinesis, recent sinus infection for which he took antibiotics and steroids, history of daily alcohol use, history of fall more than a month ago where he fell backwards with no significant neck pain and other discomfort, no previous history of any animal bites etc. 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 No sig cervical myelopathy by MRI of c spine, Normal cpk etc other diff dx seems less likely Patient does give a history of diarrheal illness about a month ago, recent sinusitis. * Recent sinusitis for which she has taken steroids and antibiotics and seems to be better * Hypertension, hyperlipidemia, diabetes, previous history of gout which appears to be stable * Previous history of surgery for acoustic neuroma with chronic right-sided lower motor neuron paresis of the facial nerve with synkinesis * Daily alcohol use but no review of systems suggestive any alcohol withdrawal syndrome. Recent memory loss per his psychologist. No evidence of DTs, and MRI head unremarkable * HTN noted last night on meds RECOMMENDATION/PLAN * CONt to monitor in ICU * VItal capacity q 12 hrs if stable * Cont abx for today and dc * Cont amlodapine 10 mg and Increase lisinopril to 40 mg and if still hypertensive and if his heart rate is elevated will also give him low dose metoprolol * Proton pump inhibitor, DVT prophylaxis * Watch for any autonomic dysfunction * Thiamine po daily * Fingerstick glucose hold metformin and use sliding scale insulin if needed today and can resume in am if he is eating ok * Resume his statin * Watch out for any dysphagia Patient is critically ill keep him in the ICU tts 37 mins
--- NOTE | 2017-11-04 08:34 | PN- Resident CRCU ---
Subjective HPI/CRCU Issues: GBS Saw pt at bedside this AM. He is significantly more weak today than yesterday. He is unable to move his torso and upper extremity without significant effort. He cannot lift his UE against gravity or spread his fingers. His LE is about as weak as yesterday. He did have an episode of hypertension for which he got IV hydralazine and started on amlodipine. Other urbina no complaints 24 Hour Events: TMAX 98.2, HR 81-110, RR 13-27, Manual BP 140/80-180/100, breathing 96-98% on RA Total in 2097 and Total out 3199 He got 42g IVIG overnight with no adverse reaction. Yesterday's work up: HIV negative. TSH WNL. ESR 8. B12 low normal. Folate nml. LFT nml. LP shows no sign of infection with slightly elevated protein of 78 and 1 WBC. MRI neck and head show no evidence of myelopathy, space occupying lestion , infarcts or hemorrhage. Objective Vital Signs & I&O Last 8 Hrs of Vitals and I&O: Intake & Output 11/04 1600 Intake Total 1060 Output Total 525 Balance 535 Intake, IV 260 Intake, Oral 800 Output, Urine 525 Patient 107 kg Weight Exam General Appearance: well developed/nourished, no apparent distress, alert, awake Head: atraumatic, normal appearance Ears, Nose, Throat: normal pharynx, normal ENT inspection Neck: supple, full range of motion Respiratory: normal breath sounds, chest non-tender, no respiratory distress, quiet respiration, lungs clear Cardiovascular: regular rate/rhythm, no edema Gastrointestinal: soft, non-tender Extremities: there is significant weakness in bilat UE compared to yesterday. He is unable to abduct his fingers or flex his wrists. He has both proximal and distal weakness. He can't shrug his shoulders against resistance. He is having significantly more difficulty holding his body up in bed. His LE weakness is about the same as yesterday but he no longer has reflexes in bilat ankles or knees which is very different from the 2+ yesterday. Cranial Nerves: normal hearing, normal speech, PERRL, facial asymmetry, hearing deficit (R) Skin: intact, normal color Current Medications: Current Medications Sig/Nilda Start time Last Medication Dose Route Stop Time Status Admin Amlodipine Besylate 10 MG DAILY 11/04 1000 AC 11/04 PO 1021 Amlodipine Besylate 10 MG ONCE ONE 11/03 2330 DC 11/04 PO 11/03 2331 0021 Amoxicillin/ 875 MG BID 11/03 1341 AC 11/04 Clavulanate Potassium PO 11/07 0500 1021 Atorvastatin Calcium 40 MG 1700 11/04 1700 AC PO Cyanocobalamin/ 1 BAG ONCE ONE 11/03 1730 DC 11/03 Thiamine/Pyridoxine IV 11/04 0129 1834 Dextrose/Water 1,000 ML Enoxaparin Sodium 40 MG DAILY 11/03 1407 AC 11/04 SC 1022 Hydralazine HCl 2.5 MG ONCE ONE 11/03 2330 DC 11/03 IV 11/03 2331 2334 Immune Globulin 42 GM DAILY@1800 11/03 1800 AC 11/03 Water 700 ML IV 1833 Insulin Aspart 0 TIDAC 11/04 1200 AC SC Lisinopril 40 MG DAILY 11/04 1000 AC 11/04 PO 1021 Lisinopril 20 MG DAILY 11/03 1339 DC 11/03 PO 1803 Magnesium Oxide 400 MG Q1 11/04 0900 DC PO 11/04 1001 Magnesium Sulfate 1 GM Q2H 11/04 0945 DC 11/04 Dextrose/Water 100 ML IV 11/04 1344 1020 Non-Formulary 0 SEE ADMIN CRITERIA 11/03 1645 DC Medication ANY Omeprazole 40 MG DAILY AC 11/03 1340 AC 11/04 PO 0642 Thiamine HCl 100 MG DAILY 11/04 1000 AC 11/04 PO 1021 Impression/Plan Impression/Problem List Impression: ASSESSMENT: This is a 62 yo male with PMH of DM, HTN, gout, R.sided acoustic neuroma s/p surgery 27 yrs ago with residual facial paralysis and hearing loss, seasonal allergies who comes in for CC weakness. Given acute onset of gradually progressive symmetrical tetraparesis without obvious acute insult or injury differential in this patient includes acute or subacute inflammatory demyelinating polyneuropathy, myelopathy, and tick quadraparesis. His weakness seems worse today particularly in his upper extremeties and he has lost his LE reflexes which is further suggestive of Guillain [place]. -- PLAN: 1. Progressive weakness: Pt has a progressive symmetric paralysis and weakness in bilat legs and arms w/ no evidence of sensory disturbance, autonomic dysfunction or bulbar involvement. 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 He certainly seems to have adequate risk factors with hx of recen flu shot , current URI and previous GI episode. He has become areflexic today which is consistent of GBS. Pt denies any travel or ingestions. Steroids are a new medication for him but unlikely to be steroid myopathy given degree and rapid onset of weakness. CK WNL. Utox negative. HIV negative. TSH WNL. ESR 8. B12 low normal. Folate nml. LFT nml. LP shows no sign of infection with slightly elevated protein of 78 and 1 WBC. MRI neck and head show no evidence of myelopathy, space occupying lestion, infarcts or hemorrhage. It is interesting that pt does not present with classic ascending paralysis rather his UE is worse than LE. * MARY ANN pending * HBA1c pending * Lyme pending * EMG pending * PT/OT to be continued * IVIG 2g/kg over 5 days (day 2) * PFT continue to monitor q12 or more frequently if necessary * ICU monitoring for arrhythmia,dysphagia, respiratory distress or autonomic dysfunction * Monitor respiratory status closely and low threshold to intubate * Hold prednisone * Hold Allopurinol * Finish dose of Augmentin for sinusitis on 11/04/2017 * Appreciate neuro consult * If the above gives no further direction can consider further heavy metal and antibody testing 2. DM: * RISS * FS * Hold Metformin * HBA1C 3. HTN: * Increase Lisinopril 20mg--> 40mg daily with appropriate hold parameters * Started on Amlodipine 10mg daily. * Montor on telemetry 4. Gout: * Hold allupurinol 5. Pt has sig hx etoh w/o evidence of etoh abuse or dependence: * Currently on CIWA w/o as don't want to cloud mental status. Not scoring. * utox * Banana bag * Thiamine daily FC CHEM DVT PPX CC diet Problem List: 1. Guillain-[place] Pain Ratin Tomorrow's Labs & Rationales: cbc icu Plan DVT/Prophylaxis: pharmacological
--- NOTE | 2017-11-04 14:36 | PN- Neurology ---
Subjective Subjective: Some increased weakness of arms. No pain, paresthesias, dysphagia or incontinence. No SOB. Objective Vital Signs and I&Os Vital Signs Date Time Temp Pulse Resp B/P B/P Pulse O2 O2 Flow FiO2 Mean Ox Delivery Rate 11/04 1200 97.9 104 24 134/74 11/04 1200 98 Room Air Room Air 11/04 1021 102 136/73 11/04 1021 102 136/73 11/04 1000 98.0 96 18 136/73 11/04 0800 98.9 100 24 152/80 11/04 0800 98.9 100 24 152/80 96 Room Air Room Air 11/04 0800 96 Room Air Room Air 11/04 0600 87 14 152/72 11/04 0400 98.1 101 15 148/76 11/04 0400 96 Room Air 11/04 0200 110 27 179/87 11/04 0127 96 Room Air 11/04 0021 110 194/99 11/04 0000 98.2 107 18 170/98 11/04 0000 97 Room Air 11/04 0000 98.2 107 18 170/98 97 Room Air 11/03 2334 106 202/105 11/03 2200 82 16 173/82 11/04 1999 97.8 81 25 197/95 11/04 1999 98 Room Air 11/03 1943 Room Air Room Air 11/03 1750 96 Room Air 11/03 1750 98.1 98 14 180/99 98 Room Air Intake & Output 11/04 1600 10 0800 11/04 0000 11/03 1600 11/03 0800 11/03 0000 Intake Total 660 1438 Output Total 2049 1150 Balance -1390 288 Intake, IV 560 1118 Intake, Oral 100 320 Number 0 0 Bowel Movements Output, Urine 2049 1150 Patient 236 lb 107 lb 268 lb 237 lb Weight Weight Bed scale Bed scale Standing Scale Measurement Method Awake, alert. In no distress. Speech fluent. Chronic right-sided lower motor neuron facial paresis unchanged. Increased weakness noted in upper extremities bilaterally. He is now 2 over 5 both proximally and distally. Hip flexors and an foot dorsiflexion remain 4 over 5. Patella and Achilles reflexes are now absent. MRI of the cervical spine showed no evidence of myelopathy. MRI of the brain showed no acute abnormalities. Lumbar puncture was essentially acellular with an elevated protein of 79. Current Medications: Current Medications Sig/Nilda Start time Last Medication Dose Route Stop Time Status Admin Amlodipine Besylate 10 MG DAILY 11/04 1000 AC 11/04 PO 1021 Amlodipine Besylate 10 MG ONCE ONE 11/03 2330 DC 11/04 PO 11/03 2331 0021 Amoxicillin/ 875 MG BID 11/03 1341 AC 11/04 Clavulanate Potassium PO 11/07 0500 1021 Atorvastatin Calcium 40 MG 1700 11/04 1700 AC PO Cyanocobalamin/ 1 BAG ONCE ONE 11/03 1730 DC 11/03 Thiamine/Pyridoxine IV 11/04 0129 1834 Dextrose/Water 1,000 ML Enoxaparin Sodium 40 MG DAILY 11/03 1407 AC 11/04 SC 1022 Hydralazine HCl 2.5 MG ONCE ONE 11/03 2330 DC 11/03 IV 11/03 2331 2334 Immune Globulin 42 GM DAILY@1800 11/03 1800 AC 11/03 Water 700 ML IV 1833 Insulin Aspart 0 TIDAC 11/04 1200 AC SC Lisinopril 40 MG DAILY 11/04 1000 AC 11/04 PO 1021 Lisinopril 20 MG DAILY 11/03 1339 DC 11/03 PO 1803 Magnesium Oxide 400 MG Q1 11/04 0900 DC PO 11/04 1001 Magnesium Sulfate 1 GM Q2H 11/04 0945 DC 11/04 Dextrose/Water 100 ML IV 11/04 1344 1020 Non-Formulary 0 SEE ADMIN CRITERIA 11/03 1645 DC Medication ANY Omeprazole 40 MG DAILY AC 11/03 1340 AC 11/04 PO 0642 Thiamine HCl 100 MG DAILY 11/04 1000 AC 11/04 PO 1021 Assessment/Plan Assessment: #1 Guillain-Hancock syndrome. There has been some progression of weakness in the upper extremities as opposed to his initial examination. In addition, he has now lost the reflexes in his lower extremities, consistent with this diagnosis. 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 Plan: Continue intravenous immunoglobulin, now day 2 Physical and occupational therapy. Continue close observation for respiratory compromise. We will consider nerve conduction study later in the week. Neurology will continue to follow. The above was discussed with the ICU resident staff.
[2017-11-05] VITALS (12 sets, daily range): BP systolic 105–162; BP diastolic 63–92
[2017-11-05 07:37] LABS: ABSOLUTE BASOPHIL COUNT 0 /CUMM (0.0-0.2); ABSOLUTE EOSINOPHIL COUNT 0.2 /CUMM (0.0-0.7); ABSOLUTE GRANULOCYTE CT 3.7 /CUMM (1.4-6.5); ABSOLUTE LYMPH COUNT 1.5 /CUMM (1.2-3.4); ABSOLUTE MONOCYTE COUNT 0.6 /CUMM (0.10-0.60); BASOPHIL % 0.5 % (0.0-2.0); EOSINOPHIL % 3.5 % (0-5); GRANULOCYTE % 61.2 % (42.2-75.2); MEAN CORPUSCULAR HGB 30.8 PG (27.0-31.0); MEAN CORPUSCULAR HGB CONC 33.9 G/DL (33.0-37.0); MEAN CORPUSCULAR VOLUME 90.9 FL (80.0-94.0); MEAN PLATELET VOLUME 8.1 FL (7.4-10.4); PLATELET COUNT 189 /CUMM (130-400); RBC DISTRIBUTION WIDTH 13.8 % (11.5-14.5); RED BLOOD CELL CT 4.52 /CUMM (4.70-6.10); WHITE BLOOD CELL COUNT 6.1 /CUMM (4.8-10.8)
--- NOTE | 2017-11-05 12:32 | PN- Resident CRCU ---
Subjective HPI/CRCU Issues: GBS Feels about the same as yesterday. No dysphagia/ dysphonia. No changes in breathing status. 24 Hour Events: VSS. Afebrile. HR - 80s and 90s. BP 120/80. O2 Sats 96-98% RA. Receiving IVIG without side effects. MRI head and neck - unremarkable. No stated progression of extremity weakness. Able to move upper extremities today L > R. Stable VC. Objective Vital Signs & I&O Last 8 Hrs of Vitals and I&O: VSS. Afebrile. HR - 80s and 90s. BP 120/80. O2 Sats 96-98% RA. Exam General Appearance: well developed/nourished, no apparent distress Head: atraumatic Ears, Nose, Throat: normal pharynx Neck: normal inspection Respiratory: normal breath sounds, chest non-tender Cardiovascular: regular rate/rhythm Gastrointestinal: normal bowel sounds, soft Extremities: 2+ upper extremities bilaterally (L better than R). Positive patellar response, delayed. Cranial Nerves: normal speech Current Medications: Current Medications Sig/Nilda Start time Last Medication Dose Route Stop Time Status Admin Amlodipine Besylate 5 MG DAILY 11/06 1000 AC 11/05 PO 1054 Amlodipine Besylate 10 MG DAILY 11/04 1000 DC 11/04 PO 1021 Amoxicillin/ 875 MG BID 11/03 1341 DC 11/04 Clavulanate Potassium PO 11/07 0500 2151 Atorvastatin Calcium 40 MG 1700 11/04 1700 AC 11/04 PO 1729 Enoxaparin Sodium 40 MG DAILY 11/03 1407 AC 11/05 SC 1053 Immune Globulin 42 GM DAILY@1800 11/03 1800 AC 11/04 Water 700 ML IV 1838 Insulin Aspart 0 TIDAC 11/04 1200 AC SC Lisinopril 40 MG DAILY 11/04 1000 AC 11/05 PO 1053 Magnesium Sulfate 1 GM ONCE ONE 11/05 0945 AC 11/05 Dextrose/Water 100 ML IV 11/05 1344 1051 Magnesium Sulfate 1 GM Q2H 11/04 0945 DC 11/04 Dextrose/Water 100 ML IV 11/04 1344 1145 Omeprazole 40 MG DAILY AC 11/03 1340 AC 11/05 PO 0653 Thiamine HCl 100 MG DAILY 11/04 1000 AC 11/05 PO 1051 Impression/Plan Impression/Problem List Impression: 62-year-old gentleman who presented with tetraparesis, LP without signs of infection but a high protein, MRA head and neck with no evidence of lesion, infarcts or hemorrhage, with initial diagnosis of GBS continues to have weakness of arms, lost reflexes. Now on day 3 of 5 of IVIG. Respiratory status closely monitored, and stable. To finish 5 day IVIG course. May need nerve conduction study, demyelinating versus axonal disease determination. FSGs well controlled on current regimen. Blood pressure well controlled. Amlodipine 5 mg and Lisinopril 40 mg. Full code. DVT prophylaxis-pharmacological Diabetic diet. Problem List: 1. Guillain-[place] Pain Ratin Tomorrow's Labs & Rationales: GBS - ICU patient. Plan DVT/Prophylaxis: pharmacological
--- NOTE | 2017-11-05 12:40 | PN- CRCU ---
Subjective HPI/Critical Care Issues: VSS. Afebrile. HR - 80s and 90s. BP 120/80. O2 Sats 96-98% RA. Receiving IVIG without side effects. MRI head and neck - unremarkable. No progression of extremity weakness. Able to move upper extremities today L > R. Says its better and vital capacity monitoring is ongoing and no reduction in VC Objective Current Medications: Current Medications Sig/Nilda Start time Last Medication Dose Route Stop Time Status Admin Amlodipine Besylate 5 MG DAILY 11/06 1000 AC 11/05 PO 1054 Amlodipine Besylate 10 MG DAILY 11/04 1000 DC 11/04 PO 1021 Amoxicillin/ 875 MG BID 11/03 1341 DC 11/04 Clavulanate Potassium PO 11/07 0500 2151 Atorvastatin Calcium 40 MG 1700 11/04 1700 AC 11/04 PO 1729 Enoxaparin Sodium 40 MG DAILY 11/03 1407 AC 11/05 SC 1053 Immune Globulin 42 GM DAILY@1800 11/03 1800 AC 11/04 Water 700 ML IV 1838 Insulin Aspart 0 TIDAC 11/04 1200 AC SC Lisinopril 40 MG DAILY 11/04 1000 AC 11/05 PO 1053 Magnesium Sulfate 1 GM ONCE ONE 11/05 0945 AC 11/05 Dextrose/Water 100 ML IV 11/05 1344 1051 Magnesium Sulfate 1 GM Q2H 11/04 0945 DC 11/04 Dextrose/Water 100 ML IV 11/04 1344 1145 Omeprazole 40 MG DAILY AC 11/03 1340 AC 11/05 PO 0653 Thiamine HCl 100 MG DAILY 11/04 1000 AC 11/05 PO 1051 Vital Signs & I&O Last 24 Hrs of Vitals and I&O: Vital Signs Date Time Temp Pulse Resp B/P B/P Pulse O2 O2 Flow FiO2 Mean Ox Delivery Rate 11/05 1054 88 143/84 11/05 1053 97 143/84 11/05 0902 97 Room Air Room Air 11/05 0800 98.5 96 12 142/80 11/05 0800 96 Room Air Room Air 11/05 0800 98.5 96 12 142/80 96 Room Air Room Air 11/05 0600 88 18 133/71 11/05 0400 97.2 89 11 122/77 11/05 0400 92 Room Air Room Air 11/05 0200 89 16 137/77 11/05 0000 97.2 90 15 142/80 11/04 2300 97.2 95 12 142/80 96 Room Air Room Air 11/04 2200 98.2 86 12 138/70 11/05 1999 98.1 83 12 110/70 11/05 1999 98 Room Air Room Air 11/04 1958 96 Room Air Room Air 11/04 1800 97.1 84 28 116/65 11/04 1600 97.1 96 22 98/70 11/04 1600 97.1 102 20 98/70 96 Room Air Room Air 11/04 1600 96 Room Air Room Air 11/04 1400 97.6 94 18 108/54 Intake & Output 11/05 1600 11/05 0800 11/05 0000 Intake Total 120 1000 Output Total 600 1075 Balance -480 -75 Intake, IV 700 Intake, Oral 120 300 Number 0 0 Bowel Movements Output, Urine 600 1075 Patient 234 lb Weight Weight Bed scale Measurement Method Impression/Plan Impression/Plan Impression/Plan: On exam Alert awake and oriented 3 not in any distress Neck supple no JVD Chest decreased breath sounds no wheezing Heart S1-S2 was heard no murmur Abdominal exam soft No cyanosis clubbing or edema Neurological exam she showed that he is alert awake and oriented 3, higher cortical function normal, speech normal. PERRLA EOMI Right-sided facial droop with chronic right-sided motor neuron facial versus with synkinesis noted Hearing absent on the right side He had diffuse bilateral weakness both sides and on 4 limbs both proximally and distally His tendon reflexes were reduced, both sides especially in the upper extremity. Plantars were downgoing, sensory exam normal he did complain of numbness both sides Patient did not give any this sphincter per symptoms SIGNIFICANT DATA Blood work reviewed which appears essentially normal CPK slightly elevated yesterday now normal IMPRESSION This is a gentleman with hypertension, hyperlipidemia, diabetes, previous history of gout, previous surgery for right-sided acoustic neuroma with some right-sided lower motor neuron perisis with synkinesis, recent sinus infection for which he took antibiotics and steroids, history of daily alcohol use, history of fall more than a month ago where he fell backwards with no significant neck pain and other discomfort, no previous history of any animal bites etc. 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 No sig cervical myelopathy by MRI of c spine, Normal cpk etc other diff dx seems less likely Patient does give a history of diarrheal illness about a month ago, recent sinusitis. * Recent sinusitis for which she has taken steroids and antibiotics and seems to be better * Hypertension, hyperlipidemia, diabetes, previous history of gout which appears to be stable * Previous history of surgery for acoustic neuroma with chronic right-sided lower motor neuron paresis of the facial nerve with synkinesis * Daily alcohol use but no review of systems suggestive any alcohol withdrawal syndrome. Recent memory loss per his leg assembler. No evidence of DTs, and MRI head unremarkable * HTN noted last night on meds RECOMMENDATION/PLAN * CONt to monitor in ICU * VItal capacity q 12 hrs * IV mag 2 grams today * Start mag po 400 mg daily * Cont amlodapine and lisinopril to and if still hypertensive and if his heart rate is elevated will also give him low dose metoprolol * Proton pump inhibitor, DVT prophylaxis * Watch for any autonomic dysfunction * Thiamine po daily * Fingerstick glucose and resume metformin home dose, Keep in ICU as he needs one to one nursing for IV iG
--- NOTE | 2017-11-05 12:57 | PN- Neurology ---
Subjective Subjective: No significant change per patient. He denies shortness of breath. Review of Systems: Notable for muscle weakness. He denies paresthesias. No diplopia, dysarthria, dysphagia, chest pain, shortness of breath, cough, vomiting, vertigo Objective Vital Signs and I&Os Vital Signs Date Time Temp Pulse Resp B/P B/P Pulse O2 O2 Flow FiO2 Mean Ox Delivery Rate 11/05 1054 88 143/84 11/05 1053 97 143/84 11/05 0902 97 Room Air Room Air 11/05 0800 98.5 96 12 142/80 11/05 0800 96 Room Air Room Air 11/05 0800 98.5 96 12 142/80 96 Room Air Room Air 11/05 0600 88 18 133/71 11/05 0400 97.2 89 11 122/77 11/05 0400 92 Room Air Room Air 11/05 0200 89 16 137/77 11/05 0000 97.2 90 15 142/80 11/04 2300 97.2 95 12 142/80 96 Room Air Room Air 11/04 2200 98.2 86 12 138/70 11/04 2000 98.1 83 12 110/70 11/04 2000 98 Room Air Room Air 11/04 1958 96 Room Air Room Air 11/04 1800 97.1 84 28 116/65 11/04 1600 97.1 96 22 98/70 11/04 1600 97.1 102 20 98/70 96 Room Air Room Air 11/04 1600 96 Room Air Room Air 11/04 1400 97.6 94 18 108/54 Intake & Output 11/05 1600 11/05 0800 11/05 0000 11/04 1600 11/04 0800 11/04 0000 Intake Total 120 1000 6940 939 6533 Output Total 600 3032 057 0838 1150 Balance -480 -75 535 -1390 288 Intake, IV 700 131 042 3355 Intake, Oral 120 300 800 100 320 Number 0 0 0 0 Bowel Movements Output, Urine 600 9846 201 4497 1150 Patient 234 lb 236 lb 107 lb 268 lb Weight Weight Bed scale Bed scale Bed scale Measurement Method Awake, alert and in no acute distress. Higher cortical function remains intact. Chronic right lower motor facial weakness remains evident. There is no left facial weakness. There is no dysarthria. The motor examination shows markedly weakness of the upper extremities bilaterally, 1-2 over 5 both proximal and distal. Proximal lower extremity power is 4 over 5. Foot dorsiflexion is 2-3 over 5. Achilles reflexes are absent. Sensory examination was normal to light touch. Current Medications: Current Medications Sig/Nilda Start time Last Medication Dose Route Stop Time Status Admin Amlodipine Besylate 5 MG DAILY 11/06 1000 AC 11/05 PO 1054 Amlodipine Besylate 10 MG DAILY 11/04 1000 DC 11/04 PO 1021 Amoxicillin/ 875 MG BID 11/03 1341 DC 11/04 Clavulanate Potassium PO 11/07 0500 2151 Atorvastatin Calcium 40 MG 1700 11/04 1700 AC 11/04 PO 1729 Enoxaparin Sodium 40 MG DAILY 11/03 1407 AC 11/05 SC 1053 Immune Globulin 42 GM DAILY@1800 11/03 1800 AC 11/04 Water 700 ML IV 1838 Insulin Aspart 0 TIDAC 11/04 1200 AC SC Lisinopril 40 MG DAILY 11/04 1000 AC 11/05 PO 1053 Magnesium Sulfate 1 GM ONCE ONE 11/05 0945 AC 11/05 Dextrose/Water 100 ML IV 11/05 1344 1051 Magnesium Sulfate 1 GM Q2H 11/04 0945 DC 11/04 Dextrose/Water 100 ML IV 11/04 1344 1145 Omeprazole 40 MG DAILY AC 11/03 1340 AC 11/05 PO 0653 Thiamine HCl 100 MG DAILY 11/04 1000 AC 11/05 PO 1051 Assessment/Plan Assessment: Guillain-Hancock syndrome. Significant weakness remains. There has been no respiratory compromise or facial involvement apart from his known, chronic right facial weakness. Plan: Continue IVIG, today will be day 3 oF 5. Continue physical and occupational therapy at the bedside. Continue DVT precautions. Suggest nerve conduction study with Dr. Liu during the week.
[2017-11-06] VITALS (10 sets, daily range): BP systolic 108–151; BP diastolic 68–90
[2017-11-06 05:27] LABS: ABSOLUTE BASOPHIL COUNT 0 /CUMM (0.0-0.2); ABSOLUTE EOSINOPHIL COUNT 0.1 /CUMM (0.0-0.7); ABSOLUTE GRANULOCYTE CT 2.5 /CUMM (1.4-6.5); ABSOLUTE LYMPH COUNT 1.3 /CUMM (1.2-3.4); ABSOLUTE MONOCYTE COUNT 0.7 /CUMM (0.10-0.60); BASOPHIL % 0.3 % (0.0-2.0); EOSINOPHIL % 3.1 % (0-5); GRANULOCYTE % 53.9 % (42.2-75.2); HEMATOCRIT 40.9 % (42-52); MEAN CORPUSCULAR HGB CONC 34.2 G/DL (33.0-37.0); MEAN CORPUSCULAR VOLUME 90.7 FL (80.0-94.0); PLATELET COUNT 169 /CUMM (130-400); RBC DISTRIBUTION WIDTH 13.3 % (11.5-14.5); RED BLOOD CELL CT 4.51 /CUMM (4.70-6.10); WHITE BLOOD CELL COUNT 4.7 /CUMM (4.8-10.8)
--- NOTE | 2017-11-06 07:40 | PN- Resident CRCU ---
Subjective HPI/CRCU Issues: GBS Saw pt at bedside. He states he feels the same as yesterday. He has reflexes back in his LE. His weakness has not progressed. He denies any SOB or difficulty swallowing. 24 Hour Events: VITALS: Tmax 100.1, 84-103, RR12-26, BP 118/42-148/82, ACCUCHECK 125, 132, 131 Satting well on RA 96%. NIF's noted; adequate and stable. Objective Vital Signs & I&O Last 8 Hrs of Vitals and I&O: Intake & Output 11/06 1600 Intake Total 820 Output Total 500 Balance 320 Intake, IV 100 Intake, Oral 720 Number 1 Bowel Movements Output, Urine 500 Patient 103.873 kg Weight Exam General Appearance: well developed/nourished, no apparent distress, alert, awake , comfortable Head: atraumatic, normal appearance Ears, Nose, Throat: normal pharynx, normal ENT inspection Neck: normal inspection, supple, full range of motion Respiratory: normal breath sounds, chest non-tender, no respiratory distress, quiet respiration, lungs clear Cardiovascular: regular rate/rhythm Gastrointestinal: normal bowel sounds, soft Extremities: normal inspection, no edema, Bilat UE still as weak. He has both proximal and distal weakness. His LE are the same as yesteray but they now have normal reflexes. Cranial Nerves: normal hearing, normal speech, facial asymmetry, Chronic r. sided facial droop Impression/Plan Impression/Problem List Impression: ASSESSMENT: This is a 62 yo male with PMH of DM, HTN, gout, R.sided acoustic neuroma s/p surgery 27 yrs ago with residual facial paralysis and hearing loss, seasonal allergies who comes in for CC weakness. Given acute onset of gradually progressive symmetrical tetraparesis without obvious acute insult or injury differential in this patient includes acute or subacute inflammatory demyelinating polyneuropathy, myelopathy, and tick quadraparesis. His weakness seems worse today particularly in his upper extremeties and he has lost his LE reflexes which is further suggestive of Guillain [place]. -- PLAN: 1. Progressive weakness: Pt has a progressive symmetric paralysis and weakness in bilat legs and arms w/ no evidence of sensory disturbance, autonomic dysfunction or bulbar involvement. 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 He certainly seems to have adequate risk factors with hx of recen flu shot , current URI and previous GI episode. He has become areflexic today which is consistent of GBS. Pt denies any travel or ingestions. Steroids are a new medication for him but unlikely to be steroid myopathy given degree and rapid onset of weakness. CK WNL. Utox negative. HIV negative. TSH WNL. ESR 8. B12 low normal. Folate nml. LFT nml. LP shows no sign of infection with slightly elevated protein of 78 and 1 WBC. MRI neck and head show no evidence of myelopathy, space occupying lestion, infarcts or hemorrhage. MARY ANN negative * HBA1c pending * Lyme pending * EMG pending-to be done on 11/06/2017 * PT/OT to be continued * IVIG 2g/kg over 5 days (day 4/5) * PFT continue to monitor q12 or more frequently if necessary * ICU monitoring for admin of IVIG, arrhythmia,dysphagia, respiratory distress or autonomic dysfunction * Monitor respiratory status closely and low threshold to intubate * Hold prednisone * Hold Allopurinol * Finished dose of Augmentin for sinusitis on 11/04/2017 * Appreciate neuro consult * If the above gives no further direction can consider further heavy metal and antibody testing 2. DM: * RISS * FS * Hold Metformin * HBA1C 3. HTN: * Lisinopril 20mg * Started on Amlodipine 5 mg daily. * Started on beta uvaldo * Montor on telemetry 4. Gout: * Hold allupurinol 5. Pt has sig hx etoh w/o evidence of etoh abuse or dependence: * Currently on CIWA w/o as don't want to cloud mental status. Not scoring. * utox negative * Banana bag x1 * Thiamine daily FC CHEM DVT PPX CC diet Problem List: 1. Guillain-[place] Pain Ratin Tomorrow's Labs & Rationales: icu cbc Plan DVT/Prophylaxis: pharmacological
--- NOTE | 2017-11-06 10:05 | PN- CRCU ---
Subjective HPI/Critical Care Issues: Clinically stable no obvious improvement in his muscle function but however no deterioration noted as well Sitting at edge of the bed All the laboratory data reviewed Magnesium still at 1.6 Potassium is adequately replaced White count 4.7 hemoglobin 14 Objective Current Medications: Current Medications Sig/Nilda Start time Last Medication Dose Route Stop Time Status Admin Amlodipine Besylate 5 MG DAILY 11/06 1000 AC 11/05 PO 1054 Amlodipine Besylate 10 MG DAILY 11/04 1000 DC 11/04 PO 1021 Atorvastatin Calcium 40 MG 1700 11/04 1700 AC 11/05 PO 1715 Enoxaparin Sodium 40 MG DAILY 11/03 1407 AC 11/05 SC 1053 Immune Globulin 42 GM DAILY@1800 11/03 1800 AC 11/05 Water 700 ML IV 1841 Insulin Aspart 0 TIDAC 11/04 1200 AC SC Lisinopril 40 MG DAILY 11/04 1000 AC 11/05 PO 1053 Magnesium Oxide 400 MG DAILY 11/06 1000 AC PO Magnesium Sulfate 1 GM ONCE ONE 11/05 1745 DC 11/05 Dextrose/Water 100 ML IV 11/05 2144 1841 Magnesium Sulfate 1 GM ONCE ONE 11/05 0945 DC 11/05 Dextrose/Water 100 ML IV 11/05 1344 1051 Metformin HCl 1,000 MG 0800,1700 11/05 1744 AC 11/06 PO 0819 Omeprazole 40 MG DAILY AC 11/03 1340 AC 11/06 PO 0458 Polyethylene Glycol 17 GM DAILY 11/05 1526 AC 11/05 PO 1615 Thiamine HCl 100 MG DAILY 11/04 1000 AC 11/05 PO 1051 Vital Signs & I&O Last 24 Hrs of Vitals and I&O: Vital Signs Date Time Temp Pulse Resp B/P B/P Pulse O2 O2 Flow FiO2 Mean Ox Delivery Rate 11/06 0600 98.7 86 14 151/83 11/06 0400 98.7 86 18 149/85 11/06 0200 98.4 86 20 142/83 11/06 0000 98.4 84 18 144/84 11/06 0000 98.4 84 18 144/84 93 Room Air Room Air 11/05 2200 98.5 82 18 162/83 11/05 2035 96 Room Air Room Air 11/05 2000 100.1 88 16 136/80 11/05 1800 98.2 90 20 117/68 11/05 1600 98.6 98 18 130/70 11/05 1600 96 Room Air Room Air 11/05 1600 98.6 98 18 130/70 95 Room Air Room Air 11/05 1400 97.8 94 16 105/70 11/05 1200 97.6 100 26 111/63 11/05 1200 96 Room Air Room Air 11/05 1054 88 143/84 11/05 1053 97 143/84 Intake & Output 11/06 1600 11/06 0800 11/06 0000 Intake Total 80 1130 Output Total 500 850 Balance -420 280 Intake, IV 830 Intake, Oral 80 300 Number 0 0 Bowel Movements Output, Urine 500 850 Patient 230 lb Weight Weight Bed scale Measurement Method Impression/Plan Impression/Plan Impression/Plan: On exam Alert awake and oriented 3 not in any distress Neck supple no JVD Chest decreased breath sounds no wheezing Heart S1-S2 was heard no murmur Abdominal exam soft No cyanosis clubbing or edema Neurological exam she showed that he is alert awake and oriented 3, higher cortical function normal, speech normal. PERRLA EOMI Right-sided facial droop with chronic right-sided motor neuron facial versus with synkinesis noted Hearing absent on the right side He had diffuse bilateral weakness both sides and on 4 limbs both proximally and distally His tendon reflexes were reduced, Plantars were downgoing, sensory exam normal he did complain of numbness both sides Patient did not give any this sphincter per symptoms SIGNIFICANT DATA Blood work reviewed which appears essentially normal CPK slightly elevated yesterday now normal IMPRESSION This is a gentleman with hypertension, hyperlipidemia, diabetes, previous history of gout, previous surgery for right-sided acoustic neuroma with some right-sided lower motor neuron perisis with synkinesis, recent sinus infection for which he took antibiotics and steroids, history of daily alcohol use, history of fall more than a month ago where he fell backwards with no significant neck pain and other discomfort, no previous history of any animal bites etc. 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 No sig cervical myelopathy by MRI of c spine, Normal cpk etc other diff dx seems less likely Patient does give a history of diarrheal illness about a month ago, recent sinusitis. * Recent sinusitis for which she has taken steroids and antibiotics and seems to be better * Hypertension, hyperlipidemia, diabetes, previous history of gout which appears to be stable * Previous history of surgery for acoustic neuroma with chronic right-sided lower motor neuron paresis of the facial nerve with synkinesis * Daily alcohol use but no review of systems suggestive any alcohol withdrawal syndrome. 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 No evidence of DTs, and MRI head unremarkable * HTN noted last night on meds RECOMMENDATION/PLAN * CONt to monitor in ICU * VItal capacity q 12 hrs * IV mag 2 grams today * Mag daily * Start metoprolol 25 bid and reduce lisinopril to 20 mg * Proton pump inhibitor, DVT prophylaxis * Watch for any autonomic dysfunction * Thiamine po daily for few more days and can be dcd * Fingerstick glucose and cont * metformin home dose, Keep in ICU as he needs one to one nursing for IV iG
[2017-11-07] VITALS (12 sets, daily range): BP systolic 106–139; BP diastolic 57–80
[2017-11-07 06:01] LABS: ABSOLUTE BASOPHIL COUNT 0 /CUMM (0.0-0.2); ABSOLUTE EOSINOPHIL COUNT 0.1 /CUMM (0.0-0.7); ABSOLUTE GRANULOCYTE CT 2.6 /CUMM (1.4-6.5); ABSOLUTE LYMPH COUNT 1.4 /CUMM (1.2-3.4); ABSOLUTE MONOCYTE COUNT 0.8 /CUMM (0.10-0.60); BASOPHIL % 0.6 % (0.0-2.0); EOSINOPHIL % 2.9 % (0-5); GRANULOCYTE % 52.1 % (42.2-75.2); MEAN CORPUSCULAR HGB 31.2 PG (27.0-31.0); MEAN CORPUSCULAR HGB CONC 34.3 G/DL (33.0-37.0); MEAN CORPUSCULAR VOLUME 90.9 FL (80.0-94.0); MEAN PLATELET VOLUME 8.9 FL (7.4-10.4); PLATELET COUNT 165 /CUMM (130-400); RBC DISTRIBUTION WIDTH 13.7 % (11.5-14.5); RED BLOOD CELL CT 4.29 /CUMM (4.70-6.10)
--- NOTE | 2017-11-07 07:49 | PN- Resident CRCU ---
Subjective HPI/CRCU Issues: Vitals: T-max 99.7. Heart rate between 78 and 114, respiratory rate between 16 and 27, manual blood pressure between 108/70 and 132/90. Satting 95-98% on room air Total balance today: In: 7938. Out: 8450. The last 8 hours he has had 500 cc urine output Today is his last day of IVIG. Micro: CSF culture on November 03 no growth to date Rapid flu negative Urine culture on the no growth to date Labs: Hemoglobin 13.4, hematocrit 39.0 BEP shows BUN 23 creatinine 0.9 Calcium and phosphorus within normal limits. Magnesium 1.8 24 Hour Events: No acute overnight events or complaints. Patient states that his weakness still feels about the same. He still has reflexes in his bilateral lower extremities at the knees. Weakness in the arms remains the same. He is going for an EMG today Objective Vital Signs & I&O Last 8 Hrs of Vitals and I&O: Intake & Output 11/07 1600 Intake Total 720 Output Total 675 Balance 45 Intake, Oral 720 Number 0 Bowel Movements Output, Urine 675 Exam General Appearance: well developed/nourished, no apparent distress, alert, awake Head: atraumatic, normal appearance Ears, Nose, Throat: normal pharynx, normal ENT inspection Neck: normal inspection, supple Respiratory: normal breath sounds, chest non-tender, no respiratory distress, quiet respiration, lungs clear Cardiovascular: regular rate/rhythm Gastrointestinal: soft, non-tender Extremities: WEAKNESS IN BILAT ue REMAINS SAME YESTERDAY. HE HAS WEAKNESS IN BILAT LE WELL BUT NOT PRONOUNCED UE. HE HAS BRISK REFLEXES IN KNEES BILAT. Current Medications: Current Medications Sig/Nilda Start time Last Medication Dose Route Stop Time Status Admin Amlodipine Besylate 5 MG DAILY 11/06 1000 AC 11/07 PO 09 Atorvastatin Calcium 40 MG 1700 11/04 1700 AC 11/07 PO 1614 Enoxaparin Sodium 40 MG DAILY 11/03 1407 AC 11/07 SC 09 Immune Globulin 42 GM DAILY@1800 11/03 1800 AC 11/06 Water 700 ML IV 11/08 1999 181 Insulin Aspart 0 TIDAC 11/04 1200 AC SC Lisinopril 10 MG DAILY 11/08 1000 AC PO Lisinopril 20 MG DAILY 11/07 1000 DC 11/07 PO 0902 Magnesium Oxide 400 MG DAILY 11/06 1000 AC 11/07 PO 0902 Magnesium Sulfate 1 GM ONCE ONE 11/07 1500 AC 11/07 Dextrose/Water 100 ML IV 11/07 1859 1614 Magnesium Sulfate 1 GM Q2H 11/06 1400 DC 11/06 Dextrose/Water 100 ML IV 11/06 1759 1542 Metformin HCl 1,000 MG 0800,1700 11/05 1744 AC 11/07 PO 1614 Metoprolol Tartrate 25 MG BID 11/06 1430 AC 11/07 PO 0902 Omeprazole 40 MG DAILY AC 11/03 1340 AC 11/07 PO 0734 Polyethylene Glycol 17 GM DAILY 11/05 1526 AC 11/07 PO 0902 Thiamine HCl 100 MG DAILY 11/04 1000 AC 11/07 PO 0902 Impression/Plan Impression/Problem List Impression: ASSESSMENT: This is a 62 yo male with PMH of DM, HTN, gout, R.sided acoustic neuroma s/p surgery 27 yrs ago with residual facial paralysis and hearing loss, seasonal allergies who comes in for CC weakness. Given acute onset of gradually progressive symmetrical tetraparesis without obvious acute insult or injury differential in this patient includes acute or subacute inflammatory demyelinating polyneuropathy, myelopathy, and tick quadraparesis. His weakness seems worse today particularly in his upper extremeties and he has lost his LE reflexes which is further suggestive of Guillain [place]. On 11/06/12 he regained his LE reflexes back. The progression of his weakness has greatly slowed down. -- PLAN: 1. Progressive weakness: Pt has a progressive symmetric paralysis and weakness in bilat legs and arms w/ no evidence of sensory disturbance, autonomic dysfunction or bulbar involvement. 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 He certainly seems to have adequate risk factors with hx of recen flu shot , current URI and previous GI episode. CK WNL. Utox negative. HIV negative. TSH WNL. ESR 8. B12 low normal. Folate nml. LFT nml. LP shows no sign of infection with slightly elevated protein of 78 and 1 WBC. MRI neck and head show no evidence of myelopathy, space occupying lestion, infarcts or hemorrhage. MARY ANN negative. Today is his last day of IVIG. * HBA1c pending * Lyme pending * EMG pending * PT/OT to be continued * IVIG 2g/kg over 5 days (day 5) * PFT continue to monitor q12 or more frequently if necessary * ICU monitoring for admin of IVIG, arrhythmia,dysphagia, respiratory distress or autonomic dysfunction * Monitor respiratory status closely and low threshold to intubate * Hold prednisone * Hold Allopurinol * Finished dose of Augmentin for sinusitis on 11/04/2017 * Appreciate neuro consult * If the above gives no further direction can consider further heavy metal and antibody testing 2. DM: * RISS * FS * Continue metformin * HBA1C 3. HTN: * Lisinopril 10mg * Started on Amlodipine 5 mg daily. * Started on beta uvaldo * Montor on telemetry 4. Gout: * Hold allupurinol 5. Pt has sig hx etoh w/o evidence of etoh abuse or dependence: * Placed on CIWA but not scoring. * utox negative * Banana bag x1 * Thiamine daily FC CHEM DVT PPX CC diet Problem List: 1. Guillain-[place] Pain Ratin Tomorrow's Labs & Rationales: ICU CBC Plan DVT/Prophylaxis: pharmacological
--- NOTE | 2017-11-07 10:43 | PN- CRCU ---
Subjective HPI/Critical Care Issues: Doing ok No new issues On and off mild tachy Weakness is stable Objective Current Medications: Current Medications Sig/Nilda Start time Last Medication Dose Route Stop Time Status Admin Amlodipine Besylate 5 MG DAILY 11/06 1000 AC 11/07 PO 0902 Atorvastatin Calcium 40 MG 1700 / 1700 AC 11/06 PO 1631 Enoxaparin Sodium 40 MG DAILY 11/03 1407 AC 11/07 SC 0902 Immune Globulin 42 GM DAILY@1800 11/03 1800 AC 11/06 Water 700 ML IV 1815 Insulin Aspart 0 TIDAC 11/04 1200 AC SC Lisinopril 20 MG DAILY 11/07 1000 AC 11/07 PO 0902 Lisinopril 40 MG DAILY 11/04 1000 DC 11/06 PO 1016 Magnesium Hydroxide 30 ML ONE ONE 11/06 1215 DC 11/06 PO 11/06 1216 1208 Magnesium Oxide 400 MG DAILY 11/06 1000 AC 11/07 PO 0902 Magnesium Sulfate 1 GM Q2H 11/06 1400 DC 11/06 Dextrose/Water 100 ML IV 11/06 1759 1542 Metformin HCl 1,000 MG 0800,1700 11/05 1744 AC 11/07 PO 0902 Metoprolol Tartrate 25 MG BID 11/06 1430 AC 11/07 PO 0902 Omeprazole 40 MG DAILY AC 11/03 1340 AC 11/07 PO 0734 Polyethylene Glycol 17 GM DAILY 11/05 1526 AC 11/07 PO 0902 Thiamine HCl 100 MG DAILY 11/04 1000 AC 11/07 PO 0902 Vital Signs & I&O Last 24 Hrs of Vitals and I&O: Vital Signs Date Time Temp Pulse Resp B/P B/P Pulse O2 O2 Flow FiO2 Mean Ox Delivery Rate 11/07 1000 86 22 107/57 11/07 0919 97 Room Air Room Air 11/07 0902 104 108/77 11/07 0902 104 108/77 11/07 0902 104 108/77 11/07 0800 97.4 94 20 108/80 11/07 0800 97.4 94 20 108/80 98 Room Air 11/07 0600 90 24 121/69 11/07 0400 98 21 119/72 11/07 0400 95 Room Air 11/07 0200 80 27 124/78 11/07 0114 93 Room Air 11/07 0000 98.8 81 13 126/72 11/07 0000 98.8 81 13 126/72 97 Room Air 11/07 0000 97 Room Air 11/06 2200 98.9 82 15 123/75 11/06 2138 83 121/68 11/06 2113 98 Room Air Room Air 11/07 1999 98.9 89 16 120/68 11/07 1999 96 Room Air 11/06 1600 98.2 93 20 108/70 11/06 1600 98.2 93 20 108/70 96 Room Air 11/06 1543 93 108/70 11/06 1200 98.2 102 20 120/80 11/06 1148 97 Room Air Intake & Output 11/07 1600 11/07 0800 11/07 0000 Intake Total 120 1280 Output Total 500 400 Balance -380 880 Intake, IV 0 880 Intake, Oral 120 400 Number 0 1 Bowel Movements Output, Urine 500 400 Laboratory Tests 11/07 11/06 0335 0500 Chemistry Sodium (137 - 145 mmol/L) 137 141 Potassium (3.5 - 5.1 mmol/L) 4.2 4.0 Chloride (98 - 107 mmol/L) 104 108 H Carbon Dioxide (22 - 30 mmol/L) 23 23 Anion Gap (5 - 16) 10 10 BUN (9 - 20 mg/dL) 23 H 16 Creatinine (0.7 - 1.2 mg/dL) 0.9 0.7 Estimated GFR (>60 ml/min) > 60 > 60 Glucose (65 - 99 mg/dL) 113 H 110 H Calcium (8.4 - 10.2 mg/dL) 8.8 8.6 Phosphorus (2.5 - 4.5 mg/dL) 4.1 4.1 Magnesium (1.6 - 2.3 mg/dL) 1.8 1.6 Total Bilirubin (0.2 - 1.3 mg/dL) 0.5 0.4 AST (17 - 59 U/L) 51 43 ALT (21 - 72 U/L) 54 59 Albumin (3.5 - 5.0 g/dL) 3.7 3.6 Hematology CBC w Diff NO MAN DIFF REQ NO MAN DIFF REQ WBC (4.8 - 10.8 /CUMM) 5.0 4.7 L RBC (4.70 - 6.10 /CUMM) 4.29 L 4.51 L Hgb (14.0 - 18.0 G/DL) 13.4 L 14.0 Hct (42 - 52 %) 39.0 L 40.9 L MCV (80.0 - 94.0 FL) 90.9 90.7 MCH (27.0 - 31.0 PG) 31.2 H 31.0 MCHC (33.0 - 37.0 G/DL) 34.3 34.2 RDW (11.5 - 14.5 %) 13.7 13.3 Plt Count (130 - 400 /CUMM) 165 169 MPV (7.4 - 10.4 FL) 8.9 8.0 Gran % (42.2 - 75.2 %) 52.1 53.9 Lymphocytes % (20.5 - 51.1 %) 27.8 28.1 Monocytes % (1.7 - 9.3 %) 16.6 H 14.6 H Eosinophils % (0 - 5 %) 2.9 3.1 Basophils % (0.0 - 2.0 %) 0.6 0.3 Absolute Granulocytes (1.4 - 6.5 /CUMM) 2.6 2.5 Absolute Lymphocytes (1.2 - 3.4 /CUMM) 1.4 1.3 Absolute Monocytes (0.10 - 0.60 /CUMM) 0.8 H 0.7 H Absolute Eosinophils (0.0 - 0.7 /CUMM) 0.1 0.1 Absolute Basophils (0.0 - 0.2 /CUMM) 0 0 Impression/Plan Impression/Plan Impression/Plan: On exam Alert awake and oriented 3 not in any distress Neck supple no JVD Chest decreased breath sounds no wheezing Heart S1-S2 was heard no murmur Abdominal exam soft No cyanosis clubbing or edema Neurological exam she showed that he is alert awake and oriented 3, higher cortical function normal, speech normal. PERRLA EOMI Right-sided facial droop with chronic right-sided motor neuron facial versus with synkinesis noted Hearing absent on the right side He had diffuse bilateral weakness both sides and on 4 limbs both proximally and distally His tendon reflexes were reduced, Plantars were downgoing, sensory exam normal he did complain of numbness both sides Patient did not give any this sphincter per symptoms IMPRESSION This is a gentleman with hypertension, hyperlipidemia, diabetes, previous history of gout, previous surgery for right-sided acoustic neuroma with some right-sided lower motor neuron perisis with synkinesis, recent sinus infection for which he took antibiotics and steroids, history of daily alcohol use, history of fall more than a month ago where he fell backwards with no significant neck pain and other discomfort, no previous history of any animal bites etc. 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 No sig cervical myelopathy by MRI of c spine, Normal cpk etc other diff dx seems less likely Patient does give a history of diarrheal illness about a month ago, recent sinusitis. * Hypertension, hyperlipidemia, diabetes, previous history of gout which appears to be stable * Previous history of surgery for acoustic neuroma with chronic right-sided lower motor neuron paresis of the facial nerve with synkinesis * Daily alcohol use but no review of systems suggestive any alcohol withdrawal syndrome. 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 No evidence of DTs, and MRI head unremarkable * HTN noted last night on meds RECOMMENDATION/PLAN * CONt to monitor in ICU today and to the floor in am * For EMG today * VItal capacity q 12 hrs * IV mag 1 grams today * Mag daily po * Metoprolol 25 bid and reduce lisinopril to 10 mg * Proton pump inhibitor, DVT prophylaxis * Watch for any autonomic dysfunction * Thiamine po daily for few more days and can be dcd * Fingerstick glucose and cont * metformin home dose, Keep in ICU as he needs one to one nursing for IV iG and to the floor PT/OT mariam
--- NOTE | 2017-11-07 12:19 | PN- Neurology ---
Subjective Subjective: EMG/ NCS done Review of Systems: n/a Objective Vital Signs and I&Os Vital Signs Date Time Temp Pulse Resp B/P B/P Pulse O2 O2 Flow FiO2 Mean Ox Delivery Rate 11/07 1200 97.8 96 20 124/70 11/07 1200 97.8 96 20 124/70 98 Room Air 11/07 1000 86 22 107/57 11/07 0919 97 Room Air Room Air 11/07 0902 104 108/77 11/07 0902 104 108/77 11/07 0902 104 108/77 11/07 0800 97.4 94 20 108/80 11/07 0800 97.4 94 20 108/80 98 Room Air 11/07 0600 90 24 121/69 11/07 0400 98 21 119/72 11/07 0400 95 Room Air 11/07 0200 80 27 124/78 11/07 0114 93 Room Air 11/07 0000 98.8 81 13 126/72 11/07 0000 98.8 81 13 126/72 97 Room Air 11/07 0000 97 Room Air 11/06 2200 98.9 82 15 123/75 11/06 2138 83 121/68 11/06 2113 98 Room Air Room Air 11/07 1999 98.9 89 16 120/68 11/06 2000 96 Room Air 11/06 1600 98.2 93 20 108/70 11/06 1600 98.2 93 20 108/70 96 Room Air 11/06 1543 93 108/70 Intake & Output 11/07 1600 11/07 0800 11/07 0000 11/06 1600 11/06 0800 11/06 0000 Intake Total 120 1280 571 80 9697 Output Total 500 400 500 500 850 Balance -380 880 320 -420 280 Intake, IV 0 880 100 830 Intake, Oral 120 400 720 80 300 Number 0 1 1 0 0 Bowel Movements Output, Urine 500 400 500 500 850 Patient 229 lb 230 lb Weight Weight Bed scale Measurement Method Current Medications: Current Medications Sig/Nilda Start time Last Medication Dose Route Stop Time Status Admin Amlodipine Besylate 5 MG DAILY 11/06 1000 AC 11/07 PO 0902 Atorvastatin Calcium 40 MG 1700 11/04 1700 AC 11/06 PO 1631 Enoxaparin Sodium 40 MG DAILY 11/03 1407 AC 11/07 SC 0902 Immune Globulin 42 GM DAILY@1800 11/03 1800 AC 11/06 Water 700 ML IV 1815 Insulin Aspart 0 TIDAC 11/04 1200 AC SC Lisinopril 20 MG DAILY 11/07 1000 AC 11/07 PO 0902 Lisinopril 40 MG DAILY 11/04 1000 DC 11/06 PO 1016 Magnesium Oxide 400 MG DAILY 11/06 1000 AC 11/07 PO 0902 Magnesium Sulfate 1 GM Q2H 11/06 1400 DC 11/06 Dextrose/Water 100 ML IV 11/06 1759 1542 Metformin HCl 1,000 MG 0800,1700 11/05 1744 AC 11/07 PO 0902 Metoprolol Tartrate 25 MG BID 11/06 1430 AC 11/07 PO 0902 Omeprazole 40 MG DAILY AC 11/03 1340 AC 11/07 PO 0734 Polyethylene Glycol 17 GM DAILY 11/05 1526 AC 11/07 PO 0902 Thiamine HCl 100 MG DAILY 11/04 1000 AC 11/07 PO 0902 Assessment/Plan Assessment: 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 No active denervation found at this time to suggest axonal involvement but study is too early to definitively rule out denervation which may not appear for 2-3 weeks. Plan: full report to follow
--- NOTE | 2017-11-07 14:15 | PN- Neurology ---
Subjective Subjective: Feels like strength is improving. Has more capability to carry out volitional actions. No SOB and no trouble swallowing. Review of Systems: no change Objective Vital Signs and I&Os Vital Signs Date Time Temp Pulse Resp B/P B/P Pulse O2 O2 Flow FiO2 Mean Ox Delivery Rate 11/07 1200 97.8 96 20 124/70 11/07 1200 97.8 96 20 124/70 98 Room Air 11/07 1000 86 22 107/57 11/07 0919 97 Room Air Room Air 11/07 0902 104 108/77 11/07 0902 104 108/77 11/07 0902 104 108/77 11/07 0800 97.4 94 20 108/80 11/07 0800 97.4 94 20 108/80 98 Room Air 11/07 0600 90 24 121/69 11/07 0400 98 21 119/72 11/07 0400 95 Room Air 11/07 0200 80 27 124/78 11/07 0114 93 Room Air 11/07 0000 98.8 81 13 126/72 11/07 0000 98.8 81 13 126/72 97 Room Air 11/07 0000 97 Room Air 11/06 2200 98.9 82 15 123/75 11/06 2138 83 121/68 11/06 2113 98 Room Air Room Air 11/07 1999 98.9 89 16 120/68 11/06 2000 96 Room Air 11/06 1600 98.2 93 20 108/70 11/06 1600 98.2 93 20 108/70 96 Room Air 11/06 1543 93 108/70 Intake & Output 11/07 1600 11/07 0800 11/07 0000 11/06 1600 11/06 0800 11/06 0000 Intake Total 120 1280 829 97 0914 Output Total 500 400 500 500 850 Balance -380 880 320 -420 280 Intake, IV 0 880 100 830 Intake, Oral 120 400 720 80 300 Number 0 1 1 0 0 Bowel Movements Output, Urine 500 400 500 500 850 Patient 229 lb 230 lb Weight Weight Bed scale Measurement Method Physical Exam: Alert and oriented x3 EOMI, NISH, lower and upper facial droop on right (secondary to acoustic neuroma surgery years ago). Cannot extend or adduct arms more than half way up. Cannot make full fist L>R weakness. Cannot splay fingers (intrinsic hand muscles ) Weak biceps and triceps. Hip flexors 4/5, dorsiflexion 2-3/5 bilaterally. Weak +1 reflex picked up in knees. Current Medications: Current Medications Sig/Nilda Start time Last Medication Dose Route Stop Time Status Admin Amlodipine Besylate 5 MG DAILY 11/06 1000 AC 11/07 PO 0902 Atorvastatin Calcium 40 MG 1700 11/04 1700 AC 11/06 PO 1631 Enoxaparin Sodium 40 MG DAILY 11/03 1407 AC 11/07 SC 0902 Immune Globulin 42 GM DAILY@1800 11/03 1800 AC 11/06 Water 700 ML IV 11/07 2000 181 Insulin Aspart 0 TIDAC 11/04 1200 AC SC Lisinopril 20 MG DAILY 11/07 1000 AC 11/07 PO 0902 Magnesium Oxide 400 MG DAILY 11/06 1000 AC 11/07 PO 0902 Magnesium Sulfate 1 GM Q2H 11/06 1400 DC 11/06 Dextrose/Water 100 ML IV 11/06 1759 1542 Metformin HCl 1,000 MG 0800,1700 11/05 1744 AC 11/07 PO 0902 Metoprolol Tartrate 25 MG BID 11/06 1430 AC 11/07 PO 0902 Omeprazole 40 MG DAILY AC 11/03 1340 AC 11/07 PO 0734 Polyethylene Glycol 17 GM DAILY 11/05 1526 AC 11/07 PO 0902 Thiamine HCl 100 MG DAILY 11/04 1000 AC 11/07 PO 0902 Results Last 24 Hours of Lab Results: Laboratory Tests 11/07 0335 Chemistry Sodium (137 - 145 mmol/L) 137 Potassium (3.5 - 5.1 mmol/L) 4.2 Chloride (98 - 107 mmol/L) 104 Carbon Dioxide (22 - 30 mmol/L) 23 Anion Gap (5 - 16) 10 BUN (9 - 20 mg/dL) 23 H Creatinine (0.7 - 1.2 mg/dL) 0.9 Estimated GFR (>60 ml/min) > 60 Glucose (65 - 99 mg/dL) 113 H Calcium (8.4 - 10.2 mg/dL) 8.8 Phosphorus (2.5 - 4.5 mg/dL) 4.1 Magnesium (1.6 - 2.3 mg/dL) 1.8 Total Bilirubin (0.2 - 1.3 mg/dL) 0.5 AST (17 - 59 U/L) 51 ALT (21 - 72 U/L) 54 Albumin (3.5 - 5.0 g/dL) 3.7 Hematology CBC w Diff NO MAN DIFF REQ WBC (4.8 - 10.8 /CUMM) 5.0 RBC (4.70 - 6.10 /CUMM) 4.29 L Hgb (14.0 - 18.0 G/DL) 13.4 L Hct (42 - 52 %) 39.0 L MCV (80.0 - 94.0 FL) 90.9 MCH (27.0 - 31.0 PG) 31.2 H MCHC (33.0 - 37.0 G/DL) 34.3 RDW (11.5 - 14.5 %) 13.7 Plt Count (130 - 400 /CUMM) 165 MPV (7.4 - 10.4 FL) 8.9 Gran % (42.2 - 75.2 %) 52.1 Lymphocytes % (20.5 - 51.1 %) 27.8 Monocytes % (1.7 - 9.3 %) 16.6 H Eosinophils % (0 - 5 %) 2.9 Basophils % (0.0 - 2.0 %) 0.6 Absolute Granulocytes (1.4 - 6.5 /CUMM) 2.6 Absolute Lymphocytes (1.2 - 3.4 /CUMM) 1.4 Absolute Monocytes (0.10 - 0.60 /CUMM) 0.8 H Absolute Eosinophils (0.0 - 0.7 /CUMM) 0.1 Absolute Basophils (0.0 - 0.2 /CUMM) 0 Assessment/Plan Assessment: 62 year old man with AIDP x 5 days of IVIG. AIDP peaks at 2 weeks and usually resolves around 4 weeks. I am hoping that the IVIG would curtail further proression and allow the recovery phase to begin. This may take up to 3 months with rehab. Plan: Start planning for STR.
[2017-11-08] VITALS (7 sets, daily range): BP systolic 110–156; BP diastolic 62–79
[2017-11-08 05:39] LABS: ABSOLUTE BASOPHIL COUNT 0 /CUMM (0.0-0.2); ABSOLUTE EOSINOPHIL COUNT 0.2 /CUMM (0.0-0.7); ABSOLUTE GRANULOCYTE CT 1.9 /CUMM (1.4-6.5); ABSOLUTE LYMPH COUNT 1.9 /CUMM (1.2-3.4); BASOPHIL % 0.7 % (0.0-2.0); EOSINOPHIL % 3.3 % (0-5); GRANULOCYTE % 38.8 % (42.2-75.2); HEMATOCRIT 38.9 % (42-52); MEAN CORPUSCULAR HGB 30.6 PG (27.0-31.0); MEAN CORPUSCULAR HGB CONC 33.7 G/DL (33.0-37.0); MEAN CORPUSCULAR VOLUME 90.8 FL (80.0-94.0); MEAN PLATELET VOLUME 8.7 FL (7.4-10.4); PLATELET COUNT 163 /CUMM (130-400); RBC DISTRIBUTION WIDTH 13.7 % (11.5-14.5); RED BLOOD CELL CT 4.28 /CUMM (4.70-6.10)
--- NOTE | 2017-11-08 07:28 | PN- Resident CRCU ---
Subjective HPI/CRCU Issues: Patient seen and examined. He is seen sitting upright at bedside enjoying his breakfast. He appears to be in no acute distress and is breathing comfortably. He reports some mild diffuse muscle pain that he attributes to "over doing it" yesterday but otherwise feels as if his strength is slowly returning. He otherwise feels well and has no new complaints. He denies any shortness of breath or new neurologic symptoms. Objective Vital Signs & I&O Last 8 Hrs of Vitals and I&O: HR 76-90 SBP 128-149 DBP 71-87 Tele: NSR Exam General Appearance: well developed/nourished, no apparent distress, alert, awake Other Physical Findings: GEN: well developed, well nourished middle aged man in no acute distress HEENT: NCAT, PERRL, EOMI, anicteric sclera, MMM NECK: Supple, no JVD, trachea midline, no accessory respiratory muscle use CARD: Normal S1/S2 w/o m/g/r; RRR PULM: CTA bilaterally ABD: Soft, NT, ND, BS+ NEURO: Awake and alert, CN II-XII grossly intact, diminished grasp strength, proximal BL UE strenth 5/5 EXT: normal pulses Current Medications: Current Medications Sig/Nilda Start time Last Medication Dose Route Stop Time Status Admin Amlodipine Besylate 5 MG DAILY 11/06 1000 AC 11/08 PO 0927 Atorvastatin Calcium 40 MG 1700 11/04 1700 AC 11/07 PO 1614 Enoxaparin Sodium 40 MG DAILY 11/03 1407 AC 11/08 SC 0927 Ibuprofen 600 MG ONCE ONE 11/08 0445 DC 11/08 PO 11/08 0446 0614 Immune Globulin 42 GM DAILY@1800 11/03 1800 DC 11/07 Water 700 ML IV 11/08 1999 181 Insulin Aspart 0 TIDAC 11/04 1200 AC SC Lisinopril 10 MG DAILY 11/08 1000 AC 11/08 PO 0926 Lisinopril 20 MG DAILY 11/07 1000 DC 11/07 PO 0902 Magnesium Oxide 400 MG DAILY 11/06 1000 AC 11/08 PO 0927 Magnesium Sulfate 1 GM ONCE ONE 11/07 1500 DC 11/07 Dextrose/Water 100 ML IV 11/07 1859 1614 Metformin HCl 1,000 MG 0800,1700 11/05 1744 AC 03/14 PO 0840 Metoprolol Tartrate 25 MG BID 11/06 1430 AC 11/08 PO 09 Omeprazole 40 MG DAILY AC 11/03 1340 AC 11/08 PO 0615 Polyethylene Glycol 17 GM DAILY 11/05 1526 AC 11/08 PO 09 Thiamine HCl 100 MG DAILY 11/04 1000 AC 11/08 PO 09 Impression/Plan Impression/Problem List Impression: 62 year old man with multiple medical problems seen for evaluation of 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 Patient is s/p 5 days of IVIG therapy and is to be followed off. His respiratory status remains stable and thus no longer requires ICU care for which he is being transferred to the telemetry floor. 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 Guillain-[place] Pain Ratin Tomorrow's Labs & Rationales: None Plan DVT/Prophylaxis: pharmacological
--- NOTE | 2017-11-08 09:54 | PN- Pulmonary ---
Subjective HPI/Critical Care Issues: Improving a little Patient seen and examined. He is seen sitting upright at bedside enjoying his breakfast. He appears to be in no acute distress and is breathing comfortably. He reports some mild diffuse muscle pain that he attributes to "over doing it" yesterday but otherwise feels as if his strength is slowly returning. He otherwise feels well and has no new complaints. He denies any shortness of breath or new neurologic symptoms. Objective Vital Signs & I&O Last 8 Hrs of Vitals and I&O: HR 76-90 SBP 128-149 DBP 71-87 Tele: NSR Objective Current Medications: Current Medications Sig/Nilda Start time Last Medication Dose Route Stop Time Status Admin Amlodipine Besylate 5 MG DAILY 11/06 1000 AC 11/08 PO 09 Atorvastatin Calcium 40 MG 1700 11/04 1700 AC 11/07 PO 1614 Enoxaparin Sodium 40 MG DAILY 11/03 1407 AC 11/08 SC 0927 Ibuprofen 600 MG ONCE ONE 11/08 0445 DC 11/08 PO 11/08 0446 0614 Immune Globulin 42 GM DAILY@1800 11/03 1800 DC 11/07 Water 700 ML IV 11/07 2000 1811 Insulin Aspart 0 TIDAC 11/04 1200 AC SC Lisinopril 10 MG DAILY 11/08 1000 AC 11/08 PO 0926 Lisinopril 20 MG DAILY 11/07 1000 DC 11/07 PO 0902 Magnesium Oxide 400 MG DAILY 11/06 1000 AC 11/08 PO 0927 Magnesium Sulfate 1 GM ONCE ONE 11/07 1500 DC 11/07 Dextrose/Water 100 ML IV 11/07 1859 1614 Metformin HCl 1,000 MG 0800,1700 11/05 1744 AC 11/08 PO 0840 Metoprolol Tartrate 25 MG BID 11/06 1430 AC 11/08 PO 0926 Omeprazole 40 MG DAILY AC 11/03 1340 AC 11/08 PO 0615 Polyethylene Glycol 17 GM DAILY 11/05 1526 AC 11/08 PO 0927 Thiamine HCl 100 MG DAILY 11/04 1000 AC 11/08 PO 0927 Vital Signs & I&O Last 24 Hrs of Vitals and I&O: vital Laboratory Tests 11/08 11/07 0445 0335 Chemistry Sodium (137 - 145 mmol/L) 139 137 Potassium (3.5 - 5.1 mmol/L) 4.6 4.2 Chloride (98 - 107 mmol/L) 105 104 Carbon Dioxide (22 - 30 mmol/L) 23 23 Anion Gap (5 - 16) 11 10 BUN (9 - 20 mg/dL) 29 H 23 H Creatinine (0.7 - 1.2 mg/dL) 0.9 0.9 Estimated GFR (>60 ml/min) > 60 > 60 Glucose (65 - 99 mg/dL) 105 H 113 H Calcium (8.4 - 10.2 mg/dL) 9.1 8.8 Phosphorus (2.5 - 4.5 mg/dL) 4.9 H 4.1 Magnesium (1.6 - 2.3 mg/dL) 1.8 1.8 Total Bilirubin (0.2 - 1.3 mg/dL) 0.7 0.5 AST (17 - 59 U/L) 63 H 51 ALT (21 - 72 U/L) 70 54 Albumin (3.5 - 5.0 g/dL) 3.7 3.7 Hematology CBC w Diff NO MAN DIFF REQ NO MAN DIFF REQ WBC (4.8 - 10.8 /CUMM) 5.0 5.0 RBC (4.70 - 6.10 /CUMM) 4.28 L 4.29 L Hgb (14.0 - 18.0 G/DL) 13.1 L 13.4 L Hct (42 - 52 %) 38.9 L 39.0 L MCV (80.0 - 94.0 FL) 90.8 90.9 MCH (27.0 - 31.0 PG) 30.6 31.2 H MCHC (33.0 - 37.0 G/DL) 33.7 34.3 RDW (11.5 - 14.5 %) 13.7 13.7 Plt Count (130 - 400 /CUMM) 163 165 MPV (7.4 - 10.4 FL) 8.7 8.9 Gran % (42.2 - 75.2 %) 38.8 L 52.1 Lymphocytes % (20.5 - 51.1 %) 37.5 27.8 Monocytes % (1.7 - 9.3 %) 19.7 H 16.6 H Eosinophils % (0 - 5 %) 3.3 2.9 Basophils % (0.0 - 2.0 %) 0.7 0.6 Absolute Granulocytes (1.4 - 6.5 /CUMM) 1.9 2.6 Absolute Lymphocytes (1.2 - 3.4 /CUMM) 1.9 1.4 Absolute Monocytes (0.10 - 0.60 /CUMM) 1.0 H 0.8 H Absolute Eosinophils (0.0 - 0.7 /CUMM) 0.2 0.1 Absolute Basophils (0.0 - 0.2 /CUMM) 0 0 Vital Signs Date Time Temp Pulse Resp B/P B/P Pulse O2 O2 Flow FiO2 Mean Ox Delivery Rate 11/08 0840 98 Room Air Room Air 11/08 0600 79 22 145/79 11/08 0417 96 Room Air 11/08 0400 97.6 77 27 140/77 11/08 0400 96 Room Air 11/08 0200 86 30 156/78 11/08 0000 98.6 80 24 128/71 11/08 0000 98.6 80 24 128/71 97 Room Air 11/08 0000 97 Room Air 11/07 2237 82 138/74 11/07 2200 98.2 84 22 119/66 11/07 2000 98.3 90 28 119/69 11/07 2000 96 Room Air 11/07 1800 98.0 97 20 139/71 11/07 1621 Room Air Room Air 11/07 1600 98.0 102 20 106/62 11/07 1600 98.0 102 20 106/62 97 Room Air 11/07 1400 92 20 127/78 11/07 1200 97.8 96 20 124/70 11/07 1200 97.8 96 20 124/70 98 Room Air 11/07 1000 86 22 107/57 Intake & Output 11/08 1600 11/08 0800 11/08 0000 Intake Total 50 1300 Output Total 900 600 Balance -850 700 Intake, IV 0 800 Intake, Oral 50 500 Number 0 0 Bowel Movements Output, Urine 900 600 Patient 229 lb Weight Weight Bed scale Measurement Method Impression/Plan Impression/Plan Impression/Plan: EMG and 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 No active denervation found at this time to suggest axonal involvement but study is too early to definitively rule out denervation which may not appear for 2-3 weeks. On exam Alert awake and oriented 3 not in any distress Neck supple no JVD Chest decreased breath sounds no wheezing Heart S1-S2 was heard no murmur Abdominal exam soft No cyanosis clubbing or edema Neurological exam she showed that he is alert awake and oriented 3, higher cortical function normal, speech normal. PERRLA EOMI Right-sided facial droop with chronic right-sided motor neuron facial versus with synkinesis noted Hearing absent on the right side He had diffuse bilateral weakness both sides and on 4 limbs both proximally and distally His tendon reflexes were reduced, Patient did not give any this sphincter per symptoms IMPRESSION This is a gentleman with hypertension, hyperlipidemia, diabetes, previous history of gout, previous surgery for right-sided acoustic neuroma with some right-sided lower motor neuron perisis with synkinesis, recent sinus infection for which he took antibiotics and steroids, history of daily alcohol use, history of fall more than a month ago where he fell backwards with no significant neck pain and other discomfort, no previous history of any animal bites etc. 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 No sig cervical myelopathy by MRI of c spine, Normal cpk etc other diff dx seems less likely Patient does give a history of diarrheal illness about a month ago, recent sinusitis. * Hypertension, hyperlipidemia, diabetes, previous history of gout which appears to be stable * Previous history of surgery for acoustic neuroma with chronic right-sided lower motor neuron paresis of the facial nerve with synkinesis * Daily alcohol use but no review of systems suggestive any alcohol withdrawal syndrome. 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 No evidence of DTs, and MRI head unremarkable * HTN noted last night on meds RECOMMENDATION/PLAN * To the floor today * vital capacity qd only and can be dcd after tommorow unless pt feels clinically worse * IV mag 1 gram today * Mag daily po * Metoprolol increase to 37.5 bid and reduce lisinopril to 10 mg and dc amlodapine * Change ppi to pepcid and DVT prophylaxis * Watch for any autonomic dysfunction * Thiamine can be dcd * Fingerstick glucose and cont * metformin home dose, PT /OT eval Pt may benefit from Sera Ok to the floor and dc to str or sera in 2 days if stable
--- NOTE | 2017-11-08 18:38 | Discharge Summary ---
Visit Information Visit Dates Admission Date: 11/03/17 Discharge Date: 11/10/2017 Hospital Course Course Attending Physician: Ej CAMARENA,Eladio Swanson Primary Care Physician: Myra CAMARENA,Bernardino García Consulting Request: Consulting Specialty: Neurology Hospital Course: 62 year old man with past medical history of hypertension, non-insulin dependent diabetes mellitus, gout, right-sided acoustic neuroma status post resection with residual facial paralysis and hearing loss, and seasonal allergies seen for evaluation of progressively worsening upper/lower extremity weakness. Patient was in his normal state of health the day prior to admission. Patient was recently treated for a sinus infection with Augmentin and prednisone and received an influenza vaccination approximately one month ago. Patient also admits to sustaining a fall approximately 1 month ago where he injured his neck. ED course -Vitals: Temp 96.7-98.1, HR 87-95, RR 16-18, BP 168-179/93-103, O2 97-99% on room air -CBC: WBC 8.3, Hgb/HCT 14.3/41.7, platelet 206 -BMP: Sodium 142, potassium 4.3, chloride 104, CO2 25, urea 16, creatinine 0.7 -LFT: Within normal limits -Miscellaneous: CPK 172, troponin I <0.01 -CSF: WBC 1, RBC 0, glucose 74, protein 79 -MRI cervical spine without IV contrast: Moderate multilevel degenerative spondylotic changes resulting in multilevel mild spinal canal stenosis. There is neural foraminal stenosis which is most advanced at C4-C5 and C5-C6. No cord signal abnormality is seen. -CXR: No acute cardiopulmonary process seen -MRI head with and without gadolinium: 1. Expected postoperative changes related to resection of right vestibular schwannoma. No evidence of recurrence. 2. No mass lesion, acute infarction, or abnormal intracranial enhancement. 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 Prednisone and atorvastatin were held on admission. Neurology consult was placed. CSF was obtained which was mostly unremarkable. Vital capacity was monitored every 12 hours without any episodes of respiratory distress. He was started on intravenous immunoglobulin at 2 g/kg for a 5 day total course which he completed uneventfully. An EMG was performed in patient that demonstrated findings suggestive of diffuse demyelination with abnormal/absent F waves consistent with Guillain-[place]. Physical therapy evaluation determined that patient would likely benefit from acute rehabilitation, however upon re-evaluation he was determined to be independent and was discharged to home with outpatient follow up with instruction to hold his statin until re-evaluation by his PCP and stop taking augmetin/prednisone. Allergies: Coded Allergies: Penicillins (TOLD CHILD 11/03/17) Disposition Summary Disposition Principal Diagnosis: Guillain-[place] Additional Diagnosis: None Discharge Disposition: home or self care Discharge Instructions General Discharge Information Code Status: Full Code Patient's Diet: Regular Diet Patient's Activity: Per PT assessment Follow-Up Instructions/Appts: Please follow up with your PCP within one week of discharge. Please follow up with your neurologist within 2 weeks of discharge. Discuss with your doctor if you can resume your statin. Medications at Discharge Discharge Medications: Stop taking the following medications: Atorvastatin Calcium (Atorvastatin Calcium) 40 MG TABLET ORAL DAILY Qty = 90 Amoxicillin/Clavulanate Potass (Amox-Clav 875-125 MG Tablet) 875 MG-125 MG TABLET ORAL TWICE DAILY Qty = 14 Prednisone (Prednisone) 5 MG TABLET ORAL DAILY Qty = 12 Continue taking these medications: Lisinopril (Lisinopril) 20 MG TABLET 1 Tablet ORAL DAILY Qty = 60 Comments: Last Taken:11/10/17 Time:10:32 LISINOPRIL 10 MG GIVEN IN HOSPITAL Metformin HCl (Metformin HCl) 1,000 MG TABLET 1 Tablet ORAL TWICE DAILY Qty = 90 Comments: Last Taken:11/10/17 Time:08:47 AM Allopurinol (Allopurinol) 300 MG TABLET 1 Tablet ORAL DAILY Qty = 90 Comments: NOT GIVEN IN HOSPITAL Omeprazole (Omeprazole) 40 MG CAPSULE.DR 1 Capsule ORAL DAILY as needed for ACID REFLUS Qty = 90 Comments: PEPCID 20 MG PO GIVEN IN HOSPITAL Copies To: Noe CAMARENA,Duane Spaulding; Myra CAMARENA,Bernardino García Attending MD Review Statement Documenting Attending: Johnnie Albarado MD Other Findings: The patient was seen and discussed with house staff. Agree with the plan of care upon discharge.
[2017-11-09 07:00] VITALS: BP 110/70
--- NOTE | 2017-11-09 07:18 | PN- Resident CRCU ---
Richar CAMARENA,[place] 11/09/17 0718: Subjective HPI/CRCU Issues: Patient seen and examined. He is seen sitting upright in bed working with occupational therapy. He appears comfortably and in no acute distress. He reports feeling well but does admit to some discomfort in his right "rotator cuff" shooting down to his arm. Objective Vital Signs & I&O Last 8 Hrs of Vitals and I&O: HR 70s/80s Tele NSR Exam General Appearance: well developed/nourished, no apparent distress, alert, awake , comfortable Other Physical Findings: GEN: well developed, well nourished middle aged man in no acute distress HEENT: NCAT, PERRL, EOMI, anicteric sclera, MMM NECK: Supple, no JVD, trachea midline, no accessory respiratory muscle use CARD: Normal S1/S2 w/o m/g/r; RRR PULM: CTA bilaterally ABD: Soft, NT, ND, BS+ NEURO: Awake and alert, CN II-XII grossly intact, diminished grasp strength, proximal BL UE strenth 5/5 EXT: normal pulses Current Medications: Current Medications Sig/Nilda Start time Last Medication Dose Route Stop Time Status Admin Amlodipine Besylate 5 MG DAILY 11/06 1000 DC 11/08 PO 0927 Atorvastatin Calcium 40 MG 1700 11/04 1700 AC 11/08 PO 1656 Enoxaparin Sodium 40 MG DAILY 11/03 1407 AC 11/09 SC 0836 Famotidine 20 MG DAILY 11/09 1000 AC 11/09 PO 0834 Ibuprofen 400 MG ONCE ONE 11/09 0315 DC 11/09 PO 11/09 0316 0315 Insulin Aspart 0 TIDAC 11/04 1200 AC SC Lisinopril 10 MG DAILY 11/08 1000 AC 11/09 PO 0836 Magnesium Oxide 400 MG DAILY 11/06 1000 AC 11/09 PO 0835 Magnesium Sulfate 1 GM ONCE ONE 11/08 1145 DC 11/08 Dextrose/Water 100 ML IV 11/08 1544 1205 Metformin HCl 1,000 MG 0800,1700 11/05 1744 AC 11/09 PO 0834 Metoprolol Tartrate 37.5 MG BID 11/08 2200 AC 11/09 PO 0836 Metoprolol Tartrate 25 MG BID 11/06 1430 DC 11/08 PO 0926 Omeprazole 40 MG DAILY AC 11/03 1340 DC 11/08 PO 0615 Polyethylene Glycol 17 GM DAILY 11/05 1526 AC 11/09 PO 0837 Thiamine HCl 100 MG DAILY 11/04 1000 DC 11/08 PO 0927 Impression/Plan Impression/Problem List Impression: 62 year old man with multiple medical problems seen for evaluation of 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 Patient remains stable with no new complaints. He is pending transfer to the general medicine floor with eventual discharge to acute rehabilitation. Occupational therapy is working with patient today. 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 Guillain-[place] Pain Ratin Tomorrow's Labs & Rationales: See assessment Plan DVT/Prophylaxis: pharmacological Code Status: Full Code Ej CAMARENA,[facility] 11/09/17 1338: Attending MD Review Statement Attending Sign Off Other Findings: agree with above stabe needs str see yesterdays note
[2017-11-09 08:00] VITALS: BP 110/60
[2017-11-09 13:50] VITALS: BP 144/83
[2017-11-09 13:54] VITALS: BP 123/78
[2017-11-09 23:28] VITALS: BP 132/76
--- NOTE | 2017-11-10 07:19 | PN- Housestaff ---
Gita CAMARENA,[facility] 11/10/17 0719: Subjective Follow-up For: GBS Subjective: Patient was seen and examined at bedside. He reports doing much better. He wishes to go home instead of STR. He has no active complaints. Review of Systems Constitutional: Reports: no symptoms. Objective Last 24 Hrs of Vital Signs/I&O Vital Signs Date Time Temp Pulse Resp B/P B/P Pulse O2 O2 Flow FiO2 Mean Ox Delivery Rate 11/10 1032 90 138/80 11/10 1032 90 138/80 11/10 0759 97.9 79 20 129/74 99 Room Air 11/09 2328 97.8 91 20 132/76 100 Room Air 11/09 2156 91 132/76 Intake & Output 11/10 1600 11/10 0800 11/10 0000 Intake Total 240 400 Output Total Balance 240 400 Intake, Oral 240 400 Physical Exam General Appearance: Alert, Oriented X3, Cooperative, No Acute Distress Skin: No Rashes, No Breakdown Skin Temp/Moisture Exam: Warm/Dry Sepsis Skin Exam (color): Normal for Ethnicity HEENT: Atraumatic Cardiovascular: Normal S1, Normal S2, No Murmurs Lungs: Clear to Auscultation, Normal Air Movement Abdomen: Soft, No Tenderness Neurological: Normal Speech Extremities: No Edema Assessment/Plan Assessment: 62 year old man with multiple medical problems seen for evaluation of 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 After initial management in the ICU consisting of regular monitoring of respiratory status and 5 day treatment of IVIG, he has been transferred to the general medicine floor. 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 * Per PT eval he can go home and have outpatient physical therapy. * S/P 5 days IVIG * CSF culture shows no growth after 3 days. * influenza was negative. * Will continue all his home medications but will hold his statin on discharge. * He doesn't need any further doses of Prednisone or Augmentin. * Diet: Diabetic * DVT Prophylaxis: SC Lovenox * Code: Full Code Problem List: 1. Guillain-[place] Pain Ratin Pain Location: none Pain Goal: Remain pain free Pain Plan: none Tomorrow's Labs & Rationales: none Consulting Request: Consulting Specialty: Neurology Johnnie Albarado MD 11/10/17 1611: Attending MD Review Statement Attending Statement Attending MD Statement: examined this patient, discuss w/resident/PA/[employer], agreed w/resident/PA/[employer]OCIATE, reviewed EMR data (avail), discussed with nursing, discussed with case mgmt, amended to note Attending Assessment/Plan: The patient was seen and discussed with house staff. Significant improvement neurologically and patient is now able to be discharged home rather than to acute rehabilitation as per physical therapy. OK to discharge to home. Will continue to hold statin until re-evaluated by PCP and neurology.
[2017-11-10 07:59] VITALS: BP 129/74
--- NOTE | 2017-11-10 09:11 | Patient Discharge Instructions ---
Discharge Instructions General Discharge Information You were seen/treated for: Guillian [place] Syndrome Special Instructions: Please follow up with your PCP within one week of discharge. Please follow up with your neurologist within 2 weeks of discharge. Discuss with your doctor if you can resume your statin. Diet Continue normal diet: Yes Acute Coronary Syndrome Inclusion Criteria At DC or during hospital stay patient has or had the following: ACS DIAGNOSIS No Discharge Core Measures Meds if any: Prescribed or Continued at Discharge Meds if any: NOT Prescribed or Continued at Discharge Congestive Heart Failure Inclusion Criteria At DC or during hospital stay patient has or had the following: CHF DIAGNOSIS No Discharge Core Measures Meds if any: Prescribed or Continued at Discharge Meds if any: NOT Prescribed or Continued at Discharge Cerebrovascular accident Inclusion Criteria At DC or during hospital stay patient has or had the following: CVA/TIA Diagnosis No Discharge Core Measures Meds if any: Prescribed or Continued at Discharge Meds if any: NOT Prescribed or Continued at Discharge Venous thromboembolism Inclusion Criteria VTE Diagnosis No VTE Type NONE VTE Confirmed by (Test) NONE Discharge Core Measures - Per Current guidelines, there needs to be overlap - treatment for the first 5 days of Warfarin therapy. - If discharged on Warfarin prior to 5 days of - overlap therapy, the patient will need to be - assessed for post discharge needs including - *Post discharge parental anticoagulation - *Warfarin and/or parental anticoagulation education - *Follow up date to check INR post discharge At least 5 days overlap therapy as Inpatient No Meds if any: Prescribed or Continued at Discharge Note: Overlap Therapy is Warfarin and Anticoagulant Meds if any: NOT Prescribed or Continued at Discharge
[2017-11-10 10:32] VITALS: BP 138/80
== END 2017-11-10 13:35 | DRG 96 ==
LOC: ERH 09:23 → ERHI 13:16 → CRI 13:16 → 2NB 13:16 → ENRESERV 13:32 → CRI 14:01 → 2NB 11-09 12:56 → ENPENDDIS 11-10 11:36 → ENTRNSPT 11-10 13:27 → EDTRNSPTSTS 11-10 13:32 → 2NB 11-10 13:35 → CMPTRNSPT 11-10 13:42
PROVIDERS: Emergency Medicine; Internal Medicine Hematology & Oncology; Student in an Organized Health Care Education/Training Program
PROC: 009U3ZX Drainage of Spinal Canal, Percutaneous Approach, Diagnostic (ICD-10-PCS; principal; 2017-11-03)
PROC: B01B1ZZ Fluoroscopy of Spinal Cord using Low Osmolar Contrast (ICD-10-PCS; principal; 2017-11-03)
DX: G61.0 Guillain-Barre syndrome (principal); G83.89 Other specified paralytic syndromes; D33.3 Benign neoplasm of cranial nerves; G83.9 Paralytic syndrome, unspecified; E11.9 Type 2 diabetes mellitus without complications; R29.810 Facial weakness; M62.81 Muscle weakness (generalized); Z72.89 Other problems related to lifestyle; I10 Essential (primary) hypertension; Z80.1 Family history of malignant neoplasm of trachea, bronchus and lung; Z82.49 Family history of ischemic heart disease and other diseases of the circulatory system; M10.9 Gout, unspecified; F10.20 Alcohol dependence, uncomplicated; W18.30XA Fall on same level, unspecified, initial encounter; Y92.014 Private driveway to single-family (private) house as the place of occurrence of the external cause; R00.0 Tachycardia, unspecified; H91.91 Unspecified hearing loss, right ear
CPT/HCPCS: 2NSBP; 70552; 72141; 82553; 86618; 87070; 87205; 87529; CCU; 36415; 70553; 71045; 77002; 80307; 81003; 82436; 87086; 87389; 87804; 87804-59; 88305; 93005; 93010; 94150; 95886; 95910; 97110-GO; 97112-GO; 97116-GO; 97162-GP; 97166-GO; 97530-GO; A9579; J0360; J1566; J1650; J7060